=== PATIENT | male | born 1950 | race Caucasian/White ===

== ENCOUNTER 2020-06-15 19:46 | Emergency (ER) | payer MEDICARE, OTHER ==
[2020-06-15 19:57] LABS: Glucose,Whole Blood 169 mg/dL (75-99)
--- NOTE | 2020-06-15 21:05 | CT ---
EXAMINATION TYPE: CT brain wo con DATE OF EXAM: 06/15/2020 HISTORY: Chronic left sided facial droop. CT DLP: 1100.4 mGycm. Automated Exposure Control for Dose Reduction was Utilized. TECHNIQUE: CT scan of the head is performed without contrast. COMPARISON: None. FINDINGS: There is no acute intracranial hemorrhage or midline shift identified. There is diffuse v entricular and sulcal prominence consistent with diffuse age-related cerebral atrophy. There is low- attenuation in the periventricular white matter consistent with chronic small vessel ischemic change. Near-complete opacification right sphenoid sinus. Posterior opacification left sphenoid sinus. Hyp erdense left globe suspect prosthesis. IMPRESSION: No acute intracranial hemorrhage or midline shift. There is moderate diffuse age-relate d cerebral atrophy and chronic small vessel ischemic change noted. Right greater than left sphenoid sinus disease.
--- NOTE | 2020-06-15 22:10 | ED ---
General Adult HPI - General Chief complaint: Neuro Symptoms/Deficit Stated complaint: Left side weakness Time Seen by Provider: 06/15/20 20:27 Source: EMS Mode of arrival: EMS Limitations: altered mental status - History of Present Illness Initial comments: Patient is a 69-year-old male presenting to the emergency department from [facility], being sent in for a computed tomography scan. Patient has been recovering from Covid, came to [facility] on 06/12/20. Patient has chronic left- sided weakness, dysphasia and left-sided droop, Dr. Brennan seen him yesterday and told staff that he need to come into the hospital today for a computed tomography scan. Patient's family was contacted and states that these neuro symptoms are chronic for him and they were upset that he needed to come into the ER. Nursing staff did review previous notes and it was mentioned in all the assessments since arrival at [facility]. Patient is alert and oriented. He has no specific complaints at this time. Patient even mention that he is not sure why he is here as his weakness is normal. Denies any fevers or chills. Denies any chest pain or shortness of breath. He has no further complaints. - Related Data Allergies Allergy/AdvReac Type Severity Reaction Status Date / Time No Known Allergies Allergy Verified 06/15/20 20:41 Review of Systems ROS Statement: Those systems with pertinent positive or pertinent negative responses have been documented in the HPI. ROS Other: All systems not noted in ROS Statement are negative. Past Medical History Past Medical History: Diabetes Mellitus, Hyperlipidemia, Hypertension, Prostate Disorder Additional Past Medical History / Comment(s): Covid 19 on 05/31/20. Kidney dx- anemia. left bundle branch block. muscle weakness (generalized). parathyroid gland. obesity. Hyperlipidemia. Hypertensive Retinopathy. Legal Blindness. 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 Ventricular Tachycardia. Idiopathic Gout. Spinal Stenosis. Obstructive and reflux uropathy. Retention of urine History of Any Multi-Drug Resistant Organisms: None Reported Past Surgical History: No Surgical Hx Reported Past Psychological History: Depression Smoking Status: Never smoker Past Alcohol Use History: None Reported Past Drug Use History: None Reported General Exam - General Exam Comments Initial Comments: GENERAL: Patient is well-developed and well-nourished. Patient is nontoxic and in no acute distress. HEAD: Atraumatic, normocephalic. EYES: Pupils equal round and reactive to light, extraocular movements intact, sclera anicteric, conjunctiva are normal. Eyelids were unremarkable. ENT: TMs normal, nares patent, oropharynx clear without exudates. Moist mucous membranes. NECK: Normal range of motion, supple without lymphadenopathy or JVD. LUNGS: Unlabored respirations. Breath sounds clear to auscultation bilaterally and equal. No wheezes rales or rhonchi. HEART: Regular rate and rhythm without murmurs, rubs or gallops. ABDOMEN: Soft, nontender, normoactive bowel sounds. No guarding, no rebound. No masses appreciated. : Deferred MUSCULOSKELETAL: Right upper and lower extremity within normal limits, patient does have weakness of the left upper and lower extremity when compared to the right. Assistant Attorney General strength is slightly decreased on the left as well. He states this is normal for him. No clubbing or cyanosis. NEUROLOGICAL: Patient is alert and oriented x 3. Motor and sensory are also intact. Cranial nerves II through XII grossly intact. Patient does have some mild aphasia and left-sided facial droop, this is his baseline. This is not new. PSYCH: Normal mood, normal affect. SKIN: Warm, Dry, normal turgor, no rashes or lesions noted. Limitations: altered mental status Course Vital Signs 06/15/20 06/15/20 19:53 22:59 Temperature 98.0 F 98.4 F Pulse Rate 55 L 58 L Respiratory 20 20 Rate Blood Pressure 102/76 110/78 O2 Sat by Pulse 100 96 Oximetry Medical Decision Making - Medical Decision Making Patient is a 69-year-old male sent in from [facility] for a computed tomography scan of his head. Patient has been at [facility] for 3 days now, after evaluation from the physician, they were concerned for some left-sided weakness however this is his normal. This is his baseline, this is not a new finding. Family was contacted and they were upset that patient was sent into the ER for this as this is chronic and not new. Patient has no complaints upon arrival. He does have some residual left-sided weakness, he again states this is not new. I did do a CT of the head which showed no acute changes. Patient is stable for discharge back to [facility]. He is in agreement with this plan of care. He will follow-up with his doctor. Case discussed with Dr. Mullen. - Lab Data Lab Results 06/15/20 Range/Units 19:54 POC Glucose (mg/dL) 169 H (75-99) mg/dL POC Glu Mixed [employer] Worker ID Adriane Rodríguez Disposition Clinical Impression: Left arm weakness Disposition: HOME SELF-CARE Condition: Stable Instructions (If sedation given, give patient instructions): Normal Exam (ED) Additional Instructions: Please return to the Emergency Department if symptoms worsen or any other concerns. Patient's weakness is chronic in nature. CT scan today showed no acute findings. F/U with PCP. Is patient prescribed a controlled substance at d/c from ED?: No Referrals: Catalina Brennan MD [Primary Care Provider] - 1-2 days
[2020-06-15 22:59] VITALS: RESP 20
[2020-06-15 23:00] VITALS: BP 110/78; PULSE 58; TEMP 98.4
== END 2020-06-15 23:04 | disposition home or self-care (01) ==
LOC: EC 19:46
DX: R53.1 Weakness (principal); E11.9 Type 2 diabetes mellitus without complications; E66.9 Obesity, unspecified; E78.5 Hyperlipidemia, unspecified; I50.9 Heart failure, unspecified; F32.9 Major depressive disorder, single episode, unspecified
CPT/HCPCS: 36415; 70450; 99284

== ENCOUNTER 2022-07-12 23:29 | Inpatient (IN) | payer MEDICARE, OTHER ==
--- NOTE | 2022-07-12 23:45 | ED ---
General Adult HPI - General Chief complaint: Shortness of Breath Stated complaint: SOB Time Seen by Provider: 07/12/22 23:31 Source: patient, EMS, old records reviewed Mode of arrival: EMS Limitations: altered mental status, physical limitation - History of Present Illness Initial comments: Dictation was produced using Beta[employer] dictation software. please excuse any grammatical, word or spelling errors. Chief Complaint: 72-year-old male presents emergency department for abnormal x- ray History of Present Illness: 72-year-old male with baseline mental debility. He had baseline is anal 1 according to EMS. Patient lives at [facility]. He had an abnormal x-ray today after he was found to be short of breath. Patient has no complaints at the bedside. He had an x-ray that suggested there was a pleural effusion cannot rule out pneumothorax. Patient denies any chest pain or shortness of breath The ROS documented in this emergency department record has been reviewed and confirmed by me. Those systems with pertinent positive or negative responses have been documented in the HPI. All other systems are other negative and/or noncontributory. PHYSICAL EXAM: General Impression: Alert and oriented x3, not in acute distress HEENT: Normocephalic atraumatic, extra-ocular movements intact, pupils equal and reactive to light bilaterally, mucous membranes moist. Cardiovascular: Heart regular rate and rhythm Chest: Able to complete full sentences, no retractions, no tachypnea, diffuse rhonchi Abdomen: abdomen soft, non-tender, non-distended, no organomegaly Musculoskeletal: Pulses present and equal in all extremities, no peripheral edema Motor: no focal deficits noted Neurological: CN II-XII grossly intact, no focal motor or sensory deficits noted Skin: Intact with no visualized rashes Psych: Normal affect and mood ED course: 72-year-old male presents emergency department for abnormal x-ray. Orville lea is a resident at [facility] in [facility]. Transfer documentation was reviewed. Nursing notes and chart review was performed EKG interpreted by me: Ventricular rate 60, sinus rhythm,. 170, QRS 80, QTC 421. No MT prolongation, no QTC prolongation, no ST or T-wave changes noted. No old EKG for comparison Overall, this EKG is unremarkable Was pt. sent in by a medical professional or institution (, PA, ENGINE MANAGER, urgent care, hospital, or [facility]...) When possible be specific @ -custodial Did you speak to anyone other than the patient for history (EMS, parent, family, police, friend...)? What history was obtained from this source @ -Brother/power of ip attorney at the bedside. Brother reports that patient recently recovered from a bout of pneumonia. States that he still coughing. Did you review nursing and triage notes (agree or disagree)? Why? @ -I reviewed and agree with nursing and triage notes Were old charts reviewed (outside hosp., previous admission, EMS record, old EKG, old radiological studies, urgent care reports/EKG's, [facility] records)? Report findings @ -No old charts were reviewed Differential Diagnosis (chest pain, altered mental status, abdominal pain women, abdominal pain men, vaginal bleeding, musculoskeletal, weakness, fever, dyspnea, syncope, headache, dizziness, GI bleed, back pain, seizure, CVA, palpatations, mental health)? @ -Differential Dyspnea: Coronary syndrome, arrhythmia, tamponade, asthma, COPD, pulmonary embolism, pneumonia, pneumothorax, pulmonary effusion, anaphylaxis, diabetic ketoacidosis, flailed chest, pulmonary contusion, diaphragmatic rupture, anemia, neuromuscular, this is not meant to be an all-inclusive list. EKG interpreted by me (3pts min.). @ -None done X-rays interpreted by me (1pt min.). @ -None done CT interpreted by me (1pt min.). @ -Pleural thickening and calcification at the right lung base U/S interpreted by me (1pt. min.). @ -None done What testing was considered but not performed or refused? (CT, X-rays, U/S, labs)? Why? @ -None What meds were considered but not given or refused? Why? @ -None Did you discuss the management of the patient with other professionals (professionals i.e. DrEden, PA, ENGINE MANAGER, lab, RT, psych nurse, social insurance adviser, intellectual property lawyer, teacher, employment officer, block and case maker)? Give summary @ -Discussed with hospitalist Was smoking cessation discussed for >3mins.? @ -No Was critical care preformed (if so, how long)? @ -No Were there social determinants of health that impacted care today? How? (Homel essness, low income, unemployed, alcoholism, drug addiction, transportation, low edu. Level, literacy, decrease access to med. care, residential, rehab)? @ -No Was there de-escalation of care discussed even if they declined (Discuss DNR or withdrawal of care, Hospice)? DNR status @ -No What co-morbidities impacted this encounter? (DM, HTN, Smoking, COPD, CAD, Cancer, CVA, ARF, Chemo, Hep., AIDS, mental health diagnosis, sleep apnea, morbid obesity)? @ -None Was patient admitted / discharged? Hospital course, mention meds given and route, prescriptions, significant lab abnormalities, going to OR and other pertinent info. @ -72-year-old male presents emergency department for abnormal x-ray. Patient states that he wears oxygen sometimes. Patient assessed for tolerance of oxygen normal. He he will possibly into the mid 80s. Patient seems to be reliant on supplemental oxygen. Chest CT shows fibrothorax. Clinical presentation consistent with hypoxic respiratory failure. Patient be admitted with consultation pulmonology. Labs are within acceptable limits. Patient's creatinine of 2.01. No old renal function labs for comparison. Undiagnosed new problem with uncertain prognosis? @ -No Drug Therapy requiring intensive monitoring for toxicity (Heparin, Nitro, Insulin, Cardizem)? @ -No Were any procedures done? @ -No Diagnosis/symptom? Acute, or Chronic, or Acute on Chronic? Uncomplicated (without systemic symptoms) or Complicated (systemic symptoms)? @ -1, complicated hypoxic respiratory failure Side effects of treatment? @ -No Exacerbation, Progression, or Severe Exacerbation? @ -No Poses a threat to life or bodily function? How? (Chest pain, [place], [place], pneumonia, PE, COPD, DKA, ARF, appy, cholecystitis, CVA, Diverticulitis, Homicidal, Suicidal, threat to staff... and all critical care pts) @ -Yes - Related Data Allergies Allergy/AdvReac Type Severity Reaction Status Date / Time No Known Allergies Allergy Verified 06/15/20 20:41 Review of Systems ROS Statement: Those systems with pertinent positive or pertinent negative responses have been documented in the HPI. ROS Other: All systems not noted in ROS Statement are negative. Past Medical History Past Medical History: Dementia, Diabetes Mellitus, Hyperlipidemia, Hypertension, Prostate Disorder Additional Past Medical History / Comment(s): Covid 19 on 05/31/20. Kidney dx- anemia. left bundle branch block. muscle weakness (generalized). parathyroid gland. obesity. Hyperlipidemia. Hypertensive Retinopathy. Legal Blindness. 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 Ventricular Tachycardia. Idiopathic Gout. Spinal Stenosis. Obstructive and reflux uropathy. Retention of urine History of Any Multi-Drug Resistant Organisms: None Reported Past Surgical History: No Surgical Hx Reported Past Psychological History: Depression Smoking Status: Never smoker Past Alcohol Use History: None Reported Past Drug Use History: None Reported General Exam Limitations: altered mental status, physical limitation Course Vital Signs 07/12/22 07/13/22 07/13/22 23:31 00:43 00:44 Temperature 98.2 F Pulse Rate 60 Respiratory 20 Rate Blood Pressure 120/86 O2 Sat by Pulse 99 88 L 96 Oximetry Medical Decision Making - Lab Data Result diagrams: 07/12/22 23:58 07/12/22 23:58 Lab Results 07/12/22 07/12/22 Range/Units 23:58 23:58 WBC 3.9 (3.8-10.6) k/uL RBC 4.07 L (4.30-5.90) m/uL Hgb 12.2 L (13.0-17.5) gm/dL Hct 37.2 L (39.0-53.0) % MCV 91.2 (80.0-100.0) fL MCH 30.1 (25.0-35.0) pg MCHC 33.0 (31.0-37.0) g/dL RDW 13.5 (11.5-15.5) % Plt Count 185 (150-450) k/uL MPV 8.5 Neutrophils % 67 % Lymphocytes % 24 % Monocytes % 7 % Eosinophils % 1 % Basophils % 1 % Neutrophils # 2.6 (1.3-7.7) k/uL Lymphocytes # 0.9 L (1.0-4.8) k/uL Monocytes # 0.3 (0-1.0) k/uL Eosinophils # 0.0 (0-0.7) k/uL Basophils # 0.0 (0-0.2) k/uL Sodium 139 (137-145) mmol/L Potassium 4.6 (3.5-5.1) mmol/L Chloride 104 (98-107) mmol/L Carbon Dioxide 27 (22-30) mmol/L Anion Gap 8 mmol/L BUN 31 H (9-20) mg/dL Creatinine 2.01 H (0.66-1.25) mg/dL Est GFR (CKD-EPI)AfAm 37 (>60 ml/min/1.73 sqM) Est GFR (CKD-EPI)NonAf 32 (>60 ml/min/1.73 sqM) Glucose 105 H (74-99) mg/dL Calcium 8.5 (8.4-10.2) mg/dL Disposition Clinical Impression: Hypoxia Disposition: ADMITTED IP TO THIS HOSP Condition: Fair Referrals: Catalina Brennan MD [Primary Care Provider] - 1-2 days Decision Time: 00:43
[2022-07-13 00:27] LABS: Basophils % (A) 1 %; Calcium 8.5 mg/dL (8.4-10.2); Eosinophils % (A) 1 %; HCT 37.2 % (39.0-53.0); HGB 12.2 gm/dL (13.0-17.5); Lymphocytes # (A) 0.9 k/uL (1.0-4.8); Lymphocytes % (A) 24 %; MCH 30.1 pg (25.0-35.0); MCV 91.2 fL (80.0-100.0); Mean Platelet Volume 8.5; Monocytes # (A) 0.3 k/uL (0-1.0); Monocytes % (A) 7 %; Neutrophils # (A) 2.6 k/uL (1.3-7.7); Neutrophils % (A) 67 %; Platelet Count 185 k/uL (150-450); Potassium 4.6 mmol/L (3.5-5.1); RBC 4.07 m/uL (4.30-5.90); RDW 13.5 % (11.5-15.5); WBC 3.9 k/uL (3.8-10.6)
--- NOTE | 2022-07-13 00:35 | CT ---
EXAMINATION TYPE: CT chest wo con DATE OF EXAM: 07/13/2022 COMPARISON: None HISTORY: Abnormal outpatient CXR CT DLP: 553.3 mGycm. Automated Exposure Control for Dose Reduction was Utilized. TECHNIQUE: CT scan of the thorax is performed without IV contrast. FINDINGS: LUNGS: There is volume loss involving the right hemithorax extensive pleural thickening and calcifica tion. Subsegmental changes seen within the right lower lobe. Correlate for is best is related disease . No pneumothorax. No sizable pleural effusion. MEDIASTINUM: Lack of IV contrast is noted to limit evaluation for mediastinal and especially hilar ad enopathy. There are no definitive greater than 1 cm hilar or mediastinal lymph nodes. No cardiomega ly or pericardial effusion is seen. Dense coronary artery calcification. Atherosclerotic change aorta with no evidence of aneurysm. Heart mildly enlarged. Trace of pericardial fluid. OTHER: Scoliosis of the spine with multilevel degenerative disc disease. Cholelithiasis noted. Nonspe cific perinephric stranding. Prominence of the soft tissues along the left flank are only partially i ncluded in the [id number] are felt to be most likely related to partial volume averaging correlate clinically to exclude soft tissue edema. Bilateral adrenal nodules are seen measuring approximately 6 Hounsfield units on the right. Measures 2.5 cm on the right and 1.2 cm and the left. IMPRESSION: 1. Volume loss involving the right hemithorax with the dense pleural thickening and calcification can be associated with a fibrothorax. Differential diagnosis includes asbestos related disease, prior tr auma or hemothorax, prior thoracic empyema or tuberculous pleural effusion. Small area of subsegmenta l consolidation adjacent to the pleural calcification. Atelectasis favored over early pneumonitis or an draped. 2. Cardiomegaly with coronary artery calcification. 3. Cholelithiasis. 4. Soft tissue prominence within the subcutaneous tissues along the left upper abdomen only partially included in the [id number] may be related to partial volume averaging correlate clinically to exc lude soft tissue edema. 5. Indeterminate bilateral adrenal nodules for which adrenal adenoma favored.
[2022-07-13] MEDS ORDERED: NALOXONE 0.4 MG/ML 1 ML VIAL IV PRN (00:48)
[2022-07-13 06:20] LABS: Glucose,Whole Blood 48 mg/dL (70-110)
[2022-07-13 06:45] LABS: Glucose,Whole Blood 59 mg/dL (70-110)
[2022-07-13 07:10] LABS: Glucose,Whole Blood 87 mg/dL (70-110)
[2022-07-13] MEDS: SODIUM CHLORIDE 0.9% 1,000 ML IV SCH ×2 (08:06→10:27)
[2022-07-13] MEDS ORDERED: ALBUTEROL NEBULIZED 2.5 MG/3 ML INHALATION PRN (08:35)
[2022-07-13] MEDS ORDERED: ACETAMINOPHEN TAB 325 MG TAB PO PRN (08:35)
[2022-07-13] MEDS ORDERED: PNEUMONIA PROTOCOL UTILIZED 1 EACH MISC PO PRN (08:35)
[2022-07-13] MEDS ORDERED: guaiFENesin-Coden 100-10MG/5ML 10 ML CUP PO PRN (08:41)
[2022-07-13] MEDS ORDERED: AZITHROMYCIN 500 MG in SODIUM CHLORIDE 0.9% 250 ML IVPB ONE (10:00)
[2022-07-13 11:14] LABS: VBG PH 7.25 (7.31-7.41)
[2022-07-13 11:36] LABS: Glucose,Whole Blood 177 mg/dL (70-110)
[2022-07-13] MEDS: IPRATROPIUM-ALBUTEROL 3 ML NEB INHALATION SCH ×3 (11:47→21:09)
[2022-07-13] MEDS: methylPREDNISolone SOD SUCCI 125 MG/2 ML VIAL IV SCH ×3 (12:25→23:23)
[2022-07-13] MEDS: DEXTROSE 5%-0.9% NACL 1,000 ML IV SCH ×2 (12:28→23:18)
--- NOTE | 2022-07-13 12:59 | CT ---
EXAMINATION TYPE: CT brain wo con DATE OF EXAM: 07/13/2022 COMPARISON: 06/15/2020 HISTORY: ams CT DLP: 1260 mGycm Automated exposure control for dose reduction was used. FINDINGS: The ventricles, basal cisterns and sulci over the convexities are markedly enlarged consistent with m arked generalized atrophy. There is moderate diffuse decreased density in the deep periventricular white matter consistent with chronic ischemic white matter demyelination. There is no mass effect or shift of midline structures. There is no acute intra or extra-axial hemorrhage. The posterior fossa including the brainstem, fourth ventricle and cerebellar pontine angles are gross ly normal. Intraorbital contents appear normal and symmetric. There are mild chronic inflammatory changes in the maxillary sinuses. The mastoid air cells are well aerated. There is been no interval change compared to previous. IMPRESSION: 1. MARKED ATROPHY UNCHANGED COMPARED TO PREVIOUS. 2. MODERATE CHRONIC ISCHEMIC WHITE MATTER CHANGE UNCHANGED COMPARED TO PREVIOUS. 3. NO ACUTE BLEED OR MASS EFFECT. 4. CHRONIC INFLAMMATORY CHANGES IN THE PARANASAL SINUSES.
--- NOTE | 2022-07-13 13:18 | P.HPIM ---
History of Present Illness H&P Date: 07/13/22 72-year-old gentleman with past medical history significant for prostate disorder presented with altered mental status. Patient does have baseline cognitive impairment however at baseline is alert and oriented to person and situation and is able to have a conversation. Patient is obtunded and history is obtained from brother at bedside patient was last seen by brother yesterday and he had a pleasant conversation and they had to breakfast together. At the time of evaluation patient was disoriented however was easily redirectable. Blood work obtained in ER showed low white cell count a CT chest was obtained which was questionable for infiltrate and patient was started on IV antibiotic. Patient was also started on oxygen supplementation Review of Systems ROS unobtainable: due to mental status Past Medical History Past Medical History: Dementia, Diabetes Mellitus, Hyperlipidemia, Hypertension, Prostate Disorder Additional Past Medical History / Comment(s): Covid 19 on 05/31/20. Kidney dx- anemia. left bundle branch block. muscle weakness (generalized). parathyroid gland. obesity. Hyperlipidemia. Hypertensive Retinopathy. Legal Blindness. 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 Ventricular Tachycardia. Idiopathic Gout. Spinal Stenosis. Obstructive and reflux uropathy. Retention of urine History of Any Multi-Drug Resistant Organisms: None Reported Past Surgical History: Prostate Surgery Additional Past Surgical History / Comment(s): prostate removed. Past Psychological History: Depression Smoking Status: Never smoker Past Alcohol Use History: None Reported Past Drug Use History: None Reported - Past Family History Father Family Medical History: Cancer, Diabetes Mellitus Additional Family Medical History / Comment(s): prostate CA. Mother Family Medical History: CVA/TIA, Diabetes Mellitus Medications and Allergies Home Medications Medication Instructions Recorded Confirmed Type Acetaminophen Tab [Tylenol] 650 mg PO Q6H PRN 07/13/22 07/13/22 History Atorvastatin Calcium [Lipitor] 40 mg PO HS 07/13/22 07/13/22 History Bumetanide [Bumex] 1 mg PO DAILY 07/13/22 07/13/22 History Cholecalciferol [Vitamin D3 (25 50 mcg PO DAILY 07/13/22 07/13/22 History Mcg = 1000 Iu)] Insulin Glargine,Hum.rec.anlog 20 units SQ DAILY 07/13/22 07/13/22 History [Lantus Solostar Pen] Insulin Glargine,Hum.rec.anlog 26 units SQ HS 07/13/22 07/13/22 History [Lantus Solostar Pen] Isosorbide Mononitrate ER [Imdur] 60 mg PO DAILY 07/13/22 07/13/22 History Loperamide HCl [Loperamide] 2 mg PO Q6H PRN 07/13/22 07/13/22 History Mag Hydrox/Aluminum Hyd/Simeth 10 ml PO Q6H PRN 07/13/22 07/13/22 History [Mylanta Maximum Strength Liq] Magnesium Hydroxide [Milk of 7,200 mg PO Q48H PRN 07/13/22 07/13/22 History Magnesia Concentrate] Metoprolol Tartrate [Lopressor] 25 mg PO BID 07/13/22 07/13/22 History Sennosides-Docusate Sodium 1 tab PO DAILY 07/13/22 07/13/22 History [Senokot-S] Sertraline [Zoloft] 50 mg PO DAILY 07/13/22 07/13/22 History allopurinoL 100 mg PO DAILY 07/13/22 07/13/22 History amLODIPine [Norvasc] 10 mg PO DAILY 07/13/22 07/13/22 History guaiFENesin SYRUP 100MG/5ML 100 mg PO Q4H PRN 07/13/22 07/13/22 History [Robitussin] lisinopriL [Zestril] 10 mg PO DAILY 07/13/22 07/13/22 History Allergies Allergy/AdvReac Type Severity Reaction Status Date / Time No Known Allergies Allergy Verified 06/15/20 20:41 Physical Exam Vitals: Vital Signs Temp Pulse Pulse Resp BP BP Pulse Ox 07/13/22 12:31 98.6 F 57 L 18 175/78 98 07/13/22 11:56 97 07/13/22 11:47 78 07/13/22 08:09 49 L 07/13/22 07:56 51 L 18 136/64 99 07/13/22 04:15 54 L 17 150/73 94 L 07/13/22 02:04 98.1 F 46 L 18 145/64 99 07/13/22 01:01 52 L 20 120/61 97 07/13/22 00:44 96 07/13/22 00:43 88 L 07/12/22 23:31 98.2 F 60 20 120/86 99 Intake and Output 07/12/22 07/13/22 07/13/22 22:59 06:59 14:59 Output Total 100 Balance -100 Output: Urine 100 Other: Voiding Method External Catheter Weight 98.339 kg - Constitutional General appearance: mild distress - Respiratory Respiratory: left: rhonchi - Cardiovascular Rhythm: regular Heart sounds: normal: S1, S2 - Gastrointestinal General gastrointestinal: no organomegaly, soft, no tenderness - Neurologic Patient is disoriented exam limited Results CBC & Chem 7: 07/12/22 23:58 07/12/22 23:58 Labs: Abnormal Lab Results - Last 24 Hours (Table) 07/12/22 07/12/22 07/13/22 Range/Units 23:58 23:58 06:19 RBC 4.07 L (4.30-5.90) m/uL Hgb 12.2 L (13.0-17.5) gm/dL Hct 37.2 L (39.0-53.0) % Lymphocytes # 0.9 L (1.0-4.8) k/uL VBG pH (7.31-7.41) VBG pCO2 (37-51) mmHg VBG HCO3 (24-28) mmol/L BUN 31 H (9-20) mg/dL Creatinine 2.01 H (0.66-1.25) mg/dL Glucose 105 H (74-99) mg/dL POC Glucose (mg/dL) 48 L (70-110) mg/dL 07/13/22 07/13/22 07/13/22 Range/Units 06:43 10:52 11:34 RBC (4.30-5.90) m/uL Hgb (13.0-17.5) gm/dL Hct (39.0-53.0) % Lymphocytes # (1.0-4.8) k/uL VBG pH 7.25 L (7.31-7.41) VBG pCO2 54 H (37-51) mmHg VBG HCO3 23 L (24-28) mmol/L BUN (9-20) mg/dL Creatinine (0.66-1.25) mg/dL Glucose (74-99) mg/dL POC Glucose (mg/dL) 59 L 177 H (70-110) mg/dL Thrombosis Risk Factor Assmnt - DVT/VTE Prophylaxis DVT/VTE Prophylaxis: Pharmacologic Prophylaxis ordered - Choose All That Apply Any of the Below Risk Factors Present?: Yes Each Factor Represents 1 point: Obesity (BMI >25) Other Risk Factors: Yes Each Risk Factor Represents 2 Points: Age 61-74 years Other congenital or acquired thrombophilia - If yes, enter type in comment: No Thrombosis Risk Factor Assessment Total Risk Factor Score: 3 Thrombosis Risk Factor Assessment Level: Moderate Risk Assessment and Plan (1) Encephalopathy acute Narrative/Plan: CT head obtained negative for acute intracranial process chronic ischemic changes noted, venous blood gas does show hypercapnia suspicion for metabolic encephalopathy. Pulmonary medicine consulted as well will continue with IV hydration had intermittent episodes of hypoglycemia Current Visit: Yes Status: Acute Code(s): G93.40 - ENCEPHALOPATHY, UNSPECIFIED SNOMED Code(s): 83981024 (2) Pneumonia Narrative/Plan: Urine Legionella ordered, continue patient on IV antibiotics of Rocephin and azithromycin Current Visit: Yes Status: Acute Code(s): J18.9 - PNEUMONIA, UNSPECIFIED ORGANISM SNOMED Code(s): 628213799 (3) Hypoxia Narrative/Plan: Patient noted to have hypoxia suspicion for aspiration CT chest without contrast showed volume loss and right hemithorax pleural thickening Current Visit: Yes Status: Acute Code(s): R09.02 - HYPOXEMIA SNOMED Code(s): 029957107
--- NOTE | 2022-07-13 13:24 | P.HPIM ---
History of Present Illness H&P Date: 07/13/22 Chief Complaint: Altered mentation 72-year-old gentleman with past medical history of prostate issues, cognitive impairment, presented to the emergency department with altered mentation. Patient was initially sent in as he was noted to have a normal chest x-ray as outpatient. However at the time of presentation in the ED patient was noted to be disoriented. CT chest was completed in the ED without contrast. Patient was noted to remain disoriented at the time of evaluation on the medical floor and a CT head was obtained. Venous blood gas was obtained as well which showed hypercapnia. Patient was accompanied by his parents at bedside who assisted with history taking. Apparently patient is alert and oriented times person and situation at baseline and was last known well on he had breakfast with his father. Patient is bedbound otherwise. Review of blood work in the ER showed low white cell count. Hemoglobin was stable. Patient will be admitted to [place] [facility] and treated for pneumonia Review of Systems ROS unobtainable: due to mental status Past Medical History Past Medical History: Dementia, Diabetes Mellitus, Hyperlipidemia, Hypertension, Prostate Disorder Additional Past Medical History / Comment(s): Covid 19 on 05/31/20. Kidney dx- a nemia. left bundle branch block. muscle weakness (generalized). parathyroid gland. obesity. Hyperlipidemia. Hypertensive Retinopathy. Legal Blindness. 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 Ventricular Tachycardia. Idiopathic Gout. Spinal Stenosis. Obstructive and reflux uropathy. Retention of urine History of Any Multi-Drug Resistant Organisms: None Reported Past Surgical History: Prostate Surgery Additional Past Surgical History / Comment(s): prostate removed. Past Psychological History: Depression Smoking Status: Never smoker Past Alcohol Use History: None Reported Past Drug Use History: None Reported - Past Family History Father Family Medical History: Cancer, Diabetes Mellitus Additional Family Medical History / Comment(s): prostate CA. Mother Family Medical History: CVA/TIA, Diabetes Mellitus Medications and Allergies Home Medications Medication Instructions Recorded Confirmed Type Acetaminophen Tab [Tylenol] 650 mg PO Q6H PRN 07/13/22 07/13/22 History Atorvastatin Calcium [Lipitor] 40 mg PO HS 07/13/22 07/13/22 History Bumetanide [Bumex] 1 mg PO DAILY 07/13/22 07/13/22 History Cholecalciferol [Vitamin D3 (25 50 mcg PO DAILY 07/13/22 07/13/22 History Mcg = 1000 Iu)] Insulin Glargine,Hum.rec.anlog 20 units SQ DAILY 07/13/22 07/13/22 History [Lantus Solostar Pen] Insulin Glargine,Hum.rec.anlog 26 units SQ HS 07/13/22 07/13/22 History [Lantus Solostar Pen] Isosorbide Mononitrate ER [Imdur] 60 mg PO DAILY 07/13/22 07/13/22 History Loperamide HCl [Loperamide] 2 mg PO Q6H PRN 07/13/22 07/13/22 History Mag Hydrox/Aluminum Hyd/Simeth 10 ml PO Q6H PRN 07/13/22 07/13/22 History [Mylanta Maximum Strength Liq] Magnesium Hydroxide [Milk of 7,200 mg PO Q48H PRN 07/13/22 07/13/22 History Magnesia Concentrate] Metoprolol Tartrate [Lopressor] 25 mg PO BID 07/13/22 07/13/22 History Sennosides-Docusate Sodium 1 tab PO DAILY 07/13/22 07/13/22 History [Senokot-S] Sertraline [Zoloft] 50 mg PO DAILY 07/13/22 07/13/22 History allopurinoL 100 mg PO DAILY 07/13/22 07/13/22 History amLODIPine [Norvasc] 10 mg PO DAILY 07/13/22 07/13/22 History guaiFENesin SYRUP 100MG/5ML 100 mg PO Q4H PRN 07/13/22 07/13/22 History [Robitussin] lisinopriL [Zestril] 10 mg PO DAILY 07/13/22 07/13/22 History Allergies Allergy/AdvReac Type Severity Reaction Status Date / Time No Known Allergies Allergy Verified 06/15/20 20:41 Physical Exam Vitals: Vital Signs Temp Pulse Pulse Resp BP BP Pulse Ox 07/13/22 12:31 98.6 F 57 L 18 175/78 98 07/13/22 11:56 97 07/13/22 11:47 78 07/13/22 08:09 49 L 07/13/22 07:56 51 L 18 136/64 99 07/13/22 04:15 54 L 17 150/73 94 L 07/13/22 02:04 98.1 F 46 L 18 145/64 99 07/13/22 01:01 52 L 20 120/61 97 07/13/22 00:44 96 07/13/22 00:43 88 L 07/12/22 23:31 98.2 F 60 20 120/86 99 Intake and Output 07/12/22 07/13/22 07/13/22 22:59 06:59 14:59 Output Total 100 Balance -100 Output: Urine 100 Other: Voiding Method External Catheter Weight 98.339 kg - Constitutional General appearance: mild distress - Respiratory Respiratory: left: diminished - Cardiovascular Rhythm: regular Heart sounds: normal: S1, S2 - Gastrointestinal General gastrointestinal: no organomegaly, soft, no tenderness - Neurologic Patient is disoriented however easily redirectable no focal deficit noted moving both upper extremities Results CBC & Chem 7: 07/12/22 23:58 07/12/22 23:58 Labs: Abnormal Lab Results - Last 24 Hours (Table) 07/12/22 07/12/22 07/13/22 Range/Units 23:58 23:58 06:19 RBC 4.07 L (4.30-5.90) m/uL Hgb 12.2 L (13.0-17.5) gm/dL Hct 37.2 L (39.0-53.0) % Lymphocytes # 0.9 L (1.0-4.8) k/uL VBG pH (7.31-7.41) VBG pCO2 (37-51) mmHg VBG HCO3 (24-28) mmol/L BUN 31 H (9-20) mg/dL Creatinine 2.01 H (0.66-1.25) mg/dL Glucose 105 H (74-99) mg/dL POC Glucose (mg/dL) 48 L (70-110) mg/dL 07/13/22 07/13/22 07/13/22 Range/Units 06:43 10:52 11:34 RBC (4.30-5.90) m/uL Hgb (13.0-17.5) gm/dL Hct (39.0-53.0) % Lymphocytes # (1.0-4.8) k/uL VBG pH 7.25 L (7.31-7.41) VBG pCO2 54 H (37-51) mmHg VBG HCO3 23 L (24-28) mmol/L BUN (9-20) mg/dL Creatinine (0.66-1.25) mg/dL Glucose (74-99) mg/dL POC Glucose (mg/dL) 59 L 177 H (70-110) mg/dL Thrombosis Risk Factor Assmnt - Choose All That Apply Any of the Below Risk Factors Present?: Yes Each Factor Represents 1 point: Obesity (BMI >25) Other Risk Factors: Yes Each Risk Factor Represents 2 Points: Age 61-74 years Other congenital or acquired thrombophilia - If yes, enter type in comment: No Thrombosis Risk Factor Assessment Total Risk Factor Score: 3 Thrombosis Risk Factor Assessment Level: Moderate Risk Assessment and Plan (1) Encephalopathy acute Narrative/Plan: CT head obtained negative for acute intracranial process chronic ischemic changes noted, venous blood gas does show hypercapnia suspicion for metabolic encephalopathy. Pulmonary medicine consulted as well will continue with IV hydration had intermittent episodes of hypoglycemia Current Visit: Yes Status: Acute Code(s): G93.40 - ENCEPHALOPATHY, UNSPECIFIED SNOMED Code(s): 90089309 (2) Pneumonia Narrative/Plan: Urine Legionella ordered, continue patient on IV antibiotics of Rocephin and azithromycin Current Visit: Yes Status: Acute Code(s): J18.9 - PNEUMONIA, UNSPECIFIED ORGANISM SNOMED Code(s): 863603126 (3) Hypoxia Narrative/Plan: Patient noted to have hypoxia suspicion for aspiration CT chest without contrast showed volume loss and right hemithorax pleural thickening Current Visit: Yes Status: Acute Code(s): R09.02 - HYPOXEMIA SNOMED Code(s): 617103872
--- NOTE | 2022-07-13 13:44 | P.CNPUL ---
History of Present Illness Consult date: 07/13/22 Requesting physician: Bear Reyna Reason for consult: dyspnea, hypoxemia, abnormal CXR/CT Chief complaint: Shortness of breath History of present illness: This is 72-year-old male patient who resides at [facility] with a history of dementia and medical debility up to approximately one year following an extended hospitalization after prostate surgery. He also has a history of severe pneumonia at the age of 14 requiring a 6 weeks stay at [facility] with multiple drainage procedures for abscess in the right lung according to his brothers who are at the bedside. They state he did not have tuberculosis. He was noted to be more short of breath at the [facility] and was transferred here for further evaluation. A computed tomography scan of the chest revealed volume loss involving the right hemithorax with dense pleural thickening and calcification associated with a fibrothorax. Computed tomography scan of the brain revealed marketed atrophy unchanged compared to previous in 2020. White count 3.9. Hemoglobin 12.2. Platelets 185. Sodium 139. Potassium 4.6. Bicarb 27. BUN 31. Creatinine 2.01. Glucose 105. Influenza screen negative. RSV screen negative. COVID-19 screen negative. He is seen today in consultation on the regular medical floor. Currently resting in bed. He is maintaining O2 saturations in the 90s on 3 L nasal cannula. Afebrile. Able to recognize his brothers. He's been initiated on DuoNeb inhalations, Pulmicort and performs inhalations, IV Solu-Medrol. Antibiotics in the form of ceftriaxone. Heparin for DVT prophylaxis. D5W half-normal saline at 100 ML's per hour. Review of Systems ROS unobtainable: due to mental status Past Medical History Past Medical History: Dementia, Diabetes Mellitus, Hyperlipidemia, Hypertension, Prostate Disorder Additional Past Medical History / Comment(s): Covid 19 on 05/31/20. Kidney dx- anemia. left bundle branch block. muscle weakness (generalized). parathyroid gland. obesity. Hyperlipidemia. Hypertensive Retinopathy. Legal Blindness. 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 Ventricular Tachycardia. Idiopathic Gout. Spinal Stenosis. Obstructive and reflux uropathy. Retention of urine History of Any Multi-Drug Resistant Organisms: None Reported Past Surgical History: Prostate Surgery Additional Past Surgical History / Comment(s): prostate removed. Past Psychological History: Depression Smoking Status: Never smoker Past Alcohol Use History: None Reported Past Drug Use History: None Reported - Past Family History Father Family Medical History: Cancer, Diabetes Mellitus Additional Family Medical History / Comment(s): prostate CA. Mother Family Medical History: CVA/TIA, Diabetes Mellitus Medications and Allergies Home Medications Medication Instructions Recorded Confirmed Type Acetaminophen Tab [Tylenol] 650 mg PO Q6H PRN 07/13/22 07/13/22 History Atorvastatin Calcium [Lipitor] 40 mg PO HS 07/13/22 07/13/22 History Bumetanide [Bumex] 1 mg PO DAILY 07/13/22 07/13/22 History Cholecalciferol [Vitamin D3 (25 50 mcg PO DAILY 07/13/22 07/13/22 History Mcg = 1000 Iu)] Insulin Glargine,Hum.rec.anlog 20 units SQ DAILY 07/13/22 07/13/22 History [Lantus Solostar Pen] Insulin Glargine,Hum.rec.anlog 26 units SQ HS 07/13/22 07/13/22 History [Lantus Solostar Pen] Isosorbide Mononitrate ER [Imdur] 60 mg PO DAILY 07/13/22 07/13/22 History Loperamide HCl [Loperamide] 2 mg PO Q6H PRN 07/13/22 07/13/22 History Mag Hydrox/Aluminum Hyd/Simeth 10 ml PO Q6H PRN 07/13/22 07/13/22 History [Mylanta Maximum Strength Liq] Magnesium Hydroxide [Milk of 7,200 mg PO Q48H PRN 07/13/22 07/13/22 History Magnesia Concentrate] Metoprolol Tartrate [Lopressor] 25 mg PO BID 07/13/22 07/13/22 History Sennosides-Docusate Sodium 1 tab PO DAILY 07/13/22 07/13/22 History [Senokot-S] Sertraline [Zoloft] 50 mg PO DAILY 07/13/22 07/13/22 History allopurinoL 100 mg PO DAILY 07/13/22 07/13/22 History amLODIPine [Norvasc] 10 mg PO DAILY 07/13/22 07/13/22 History guaiFENesin SYRUP 100MG/5ML 100 mg PO Q4H PRN 07/13/22 07/13/22 History [Robitussin] lisinopriL [Zestril] 10 mg PO DAILY 07/13/22 07/13/22 History Allergies Allergy/AdvReac Type Severity Reaction Status Date / Time No Known Allergies Allergy Verified 06/15/20 20:41 Physical Exam Vitals: Vital Signs Temp Pulse Pulse Resp BP BP Pulse Ox 07/13/22 13:17 52 L 07/13/22 12:31 98.6 F 57 L 18 175/78 98 07/13/22 11:56 97 07/13/22 11:47 78 07/13/22 08:09 49 L 07/13/22 07:56 51 L 18 136/64 99 07/13/22 04:15 54 L 17 150/73 94 L 07/13/22 02:04 98.1 F 46 L 18 145/64 99 07/13/22 01:01 52 L 20 120/61 97 07/13/22 00:44 96 07/13/22 00:43 88 L 07/12/22 23:31 98.2 F 60 20 120/86 99 Intake and Output 07/12/22 07/13/22 07/13/22 22:59 06:59 14:59 Output Total 100 150 Balance -100 -150 Output: Urine 100 150 Other: Voiding Method External Catheter Weight 98.339 kg GENERAL EXAM: Alert, slow to respond, recognizes brothers, 72-year-old male, on 3 L nasal cannula, comfortable in no apparent distress. HEAD: Normocephalic. EYES: Normal reaction of pupils, equal size. NOSE: Clear with pink turbinates. THROAT: No erythema or exudates. NECK: No masses, no JVD. CHEST: No chest wall deformity. LUNGS: Equal air entry with few crackles in the right lower lobe. CVS: S1 and S2 normal with no audible murmur, regular rhythm. ABDOMEN: No hepatosplenomegaly, normal bowel sounds, no guarding or rigidity. SPINE: No scoliosis or deformity SKIN: No rashes CENTRAL NERVOUS SYSTEM: No focal deficits, tone is normal in all 4 extremities. EXTREMITIES: There is no peripheral edema. No clubbing, no cyanosis. Pe ripheral pulses are intact. Results - Laboratory Findings CBC and BMP: 07/12/22 23:58 07/12/22 23:58 Abnormal lab findings: Abnormal Labs 07/12/22 07/12/22 07/13/22 23:58 23:58 06:19 RBC 4.07 L Hgb 12.2 L Hct 37.2 L Lymphocytes # 0.9 L VBG pH VBG pCO2 VBG HCO3 BUN 31 H Creatinine 2.01 H Glucose 105 H POC Glucose (mg/dL) 48 L 07/13/22 07/13/22 07/13/22 06:43 10:52 11:34 RBC Hgb Hct Lymphocytes # VBG pH 7.25 L VBG pCO2 54 H VBG HCO3 23 L BUN Creatinine Glucose POC Glucose (mg/dL) 59 L 177 H - Diagnostic Findings CT scan - chest: image reviewed Assessment and Plan Assessment: Acute hypoxic respiratory failure secondary to acute exacerbation of chronic obstructive pulmonary disease and possible early right lower lobe pneumonia. There is volume loss involving the right hemithorax with a dense pleural thickening and calcification could be associated with fibrothorax. The patient does have a history of significant pneumonia with suspected abscess and multiple drainage at [facility] back at the age of 14. He was hospitalized for 6 weeks at that time. Diarrhea, C. difficile screen pending History of medical debility and near bedridden for the past year following a extended hospitalization after prostate surgery. Currently residing in [facility] History of dementia History of chronic tobacco dependence however quit approximately 3 years ago Diabetes mellitus Hypertension Hyperlipidemia COVID-19 infection in May 2020 Chronic kidney disease Chronic anemia Legal blindness History of gout History of urinary retention History of depression Poor overall functional performance based on the above-mentioned multiple comorbidities Plan: The patient was seen and evaluated CAT scans, medications and labs reviewed Continue antibiotics in the form of ceftriaxone Continue bronchodilators, Solu-Medrol Titrate the FiO2 as tolerated Check a pro-calcitonin Legionella screen pending Urine culture pending C. difficile screen pending We will continue to follow and make further recommendations based on his clinical status I have personally seen and examined the patient, performed the documentation and the assessment and plan as written. Number of minutes spent on the visit: 20.
[2022-07-13 16:38] LABS: Glucose,Whole Blood 206 mg/dL (70-110)
[2022-07-13] MEDS ORDERED: DEXTROSE 50% SYRINGE 50 ML IVP PRN ×2 (17:16)
[2022-07-13] MEDS: INSULIN ASPART (NovoLOG) 100 UNIT/ML VIAL SQ SCH ×2 (17:34→20:32)
[2022-07-13 20:07] LABS: Glucose,Whole Blood 242 mg/dL (70-110)
[2022-07-13] MEDS: HEPARIN SODIUM,PORCINE/PF 5,000 UNIT/0.5 ML SYRINGE SQ SCH (20:32)
[2022-07-13] MEDS: BUDESONIDE 1 MG/2 ML NEBU INHALATION SCH (21:09)
[2022-07-13] MEDS: FORMOTEROL FUMARATE 20 MCG/2 ML NEBU INHALATION SCH (21:09)
[2022-07-14 06:00] LABS: Glucose,Whole Blood 240 mg/dL (70-110)
[2022-07-14] MEDS: methylPREDNISolone SOD SUCCI 125 MG/2 ML VIAL IV SCH (06:09)
[2022-07-14] MEDS: INSULIN ASPART (NovoLOG) 100 UNIT/ML VIAL SQ SCH ×4 (06:10→20:48)
[2022-07-14] MEDS: DEXTROSE 5%-0.9% NACL 1,000 ML IV SCH (06:23)
[2022-07-14] MEDS: HEPARIN SODIUM,PORCINE/PF 5,000 UNIT/0.5 ML SYRINGE SQ SCH ×2 (07:42→20:48)
[2022-07-14] MEDS: AZITHROMYCIN 500 MG in SODIUM CHLORIDE 0.9% 250 ML IVPB SCH (07:42)
[2022-07-14] MEDS: FORMOTEROL FUMARATE 20 MCG/2 ML NEBU INHALATION SCH ×2 (07:47→20:04)
[2022-07-14] MEDS: IPRATROPIUM-ALBUTEROL 3 ML NEB INHALATION SCH ×4 (07:47→20:04)
[2022-07-14] MEDS: BUDESONIDE 1 MG/2 ML NEBU INHALATION SCH ×2 (07:47→20:04)
[2022-07-14 08:59] LABS: Basophils % (A) 0 %; Eosinophils % (A) 1 %; HCT 42.1 % (39.0-53.0); Lymphocytes # (A) 0.7 k/uL (1.0-4.8); Lymphocytes % (A) 21 %; MCH 29.4 pg (25.0-35.0); Mean Platelet Volume 8.3; Monocytes # (A) 0.1 k/uL (0-1.0); Monocytes % (A) 4 %; Neutrophils # (A) 2.4 k/uL (1.3-7.7); Neutrophils % (A) 74 %; Platelet Count 152 k/uL (150-450); RBC 4.43 m/uL (4.30-5.90); RDW 13.3 % (11.5-15.5); WBC 3.2 k/uL (3.8-10.6)
[2022-07-14 09:24] LABS: African American GFR (CKD) 43 (>60 ml/min/1.73 sqM); Anion Gap 8 mmol/L; Blood Urea Nitrogen 26 mg/dL (9-20); C Reactive Protein <0.5 mg/dL (<1.0); Calcium 8.4 mg/dL (8.4-10.2); Carbon Dioxide 22 mmol/L (22-30); Chloride 112 mmol/L (98-107); Glucose 245 mg/dL (74-99); Non-African American GFR(CKD) 37 (>60 ml/min/1.73 sqM); Potassium 4.8 mmol/L (3.5-5.1); Sodium 142 mmol/L (137-145)
--- NOTE | 2022-07-14 10:22 | XR ---
EXAMINATION TYPE: XR chest 1V portable DATE OF EXAM: 07/14/2022 COMPARISON: NONE HISTORY: Shortness of breath TECHNIQUE: Single frontal view of the chest is obtained. FINDINGS: There is elevation right hemidiaphragm. There is a large calcified pleural based plaque in the right mid and lower lung zone. There is a probable right pleural effusion which is possibly loculated. The heart is enlarged and the pulmonary vasculature appears cephalized. There is no pneumothorax. There is no left lung pleural effusion. The osseous structures are osteopenic but intact IMPRESSION: 1. Acute cardiopulmonary disease as described above. Possible CHF and clinical correlation is recomme nded. 2. Chronic cardiopulmonary disease on the right with large pleural based plaque, volume loss and pleu ral effusion as described above.
[2022-07-14] MEDS ORDERED: FUROSEMIDE 10 MG/ML 4 ML VIAL IV STA ×2 (11:40→22:46)
--- NOTE | 2022-07-14 11:40 | P.PN ---
Subjective Progress Note Date: 07/14/22 This is 72-year-old male patient who resides at [facility] with a history of dementia and medical debility up to approximately one year following an extended hospitalization after prostate surgery. He also has a history of severe pneumonia at the age of 14 requiring a 6 weeks stay at [facility] with multiple drainage procedures for abscess in the right lung according to his brothers who are at the bedside. They state he did not have tuberculosis. He was noted to be more short of breath at the [facility] and was transferred here for further evaluation. A computed tomography scan of the chest revealed volume loss involving the right hemithorax with dense pleural thickening and calcific ation associated with a fibrothorax. Computed tomography scan of the brain revealed marketed atrophy unchanged compared to previous in 2020. White count 3.9. Hemoglobin 12.2. Platelets 185. Sodium 139. Potassium 4.6. Bicarb 27. BUN 31. Creatinine 2.01. Glucose 105. Influenza screen negative. RSV screen negative. COVID-19 screen negative. He is seen today in consultation on the regular medical floor. Currently resting in bed. He is maintaining O2 saturations in the 90s on 3 L nasal cannula. Afebrile. Able to recognize his brothers. He's been initiated on DuoNeb inhalations, Pulmicort and performs inhalations, IV Solu-Medrol. Antibiotics in the form of ceftriaxone. Heparin for DVT prophylaxis. D5W half-normal saline at 100 ML's per hour. The patient is seen today 07/14/2022 in follow-up on the selective care unit. He is more obtunded today compared to yesterday. He is arousable. He is moving all fours. He is answering some yes no questions. Maintaining O2 saturations up to 99% on 3 L/m per nasal cannula. Chest x-ray reveals some fluid volume overload. There is chronic cardiopulmonary disease in the right with large pleural-based plaque, volume loss and pleural effusion. No left lung pleural effusion. No pneumothorax. Urine culture is pending. White count 3.2. Hemoglobin 13.0. Platelets 152. Sodium 142. Potassium 4.8. Bicarb 22. BUN 26. Creatinine 1.78. Glucose 245. Ammonia level less than 9. Continued on ceftriaxone and azithromycin. Continued on bronchodilators. Remains on IV Solu-Medrol. ABGs are pending. Neurology consult pending. Objective - Vital Signs Vital signs: Vital Signs Temp 97.5 F L 07/14/22 07:40 Pulse 74 07/14/22 11:27 Resp 15 07/14/22 11:27 BP 144/66 07/14/22 11:27 Pulse Ox 99 07/14/22 11:27 FiO2 Intake & Output 07/13/22 07/14/22 07/14/22 18:59 06:59 18:59 Intake Total 480 Output Total 650 400 350 Balance -650 80 -350 Intake: Oral 480 Output: Urine 650 400 350 Other: Voiding Method Indwelling Catheter Indwelling Catheter Indwelling Catheter # Voids 1 # Bowel Movements 1 - Exam GENERAL EXAM: Arousable, slow to respond, 72-year-old male, on 3 L nasal cannula, comfortable in no apparent distress. HEAD: Normocephalic. EYES: Normal reaction of pupils, equal size. NOSE: Clear with pink turbinates. THROAT: No erythema or exudates. NECK: No masses, no JVD. CHEST: No chest wall deformity. LUNGS: Equal air entry with few crackles in the right lower lobe. CVS: S1 and S2 normal with no audible murmur, regular rhythm. ABDOMEN: No hepatosplenomegaly, normal bowel sounds, no guarding or rigidity. SPINE: No scoliosis or deformity SKIN: No rashes CENTRAL NERVOUS SYSTEM: No focal deficits, tone is normal in all 4 extremities. EXTREMITIES: There is no peripheral edema. No clubbing, no cyanosis. Peripheral pulses are intact. - Labs CBC & Chem 7: 07/14/22 08:32 07/14/22 08:32 Labs: Abnormal Lab Results - Last 24 Hours (Table) 07/13/22 07/13/22 07/13/22 Range/Units 10:52 11:34 16:37 WBC (3.8-10.6) k/uL Lymphocytes # (1.0-4.8) k/uL Chloride (98-107) mmol/L BUN (9-20) mg/dL Creatinine (0.66-1.25) mg/dL Glucose (74-99) mg/dL POC Glucose (mg/dL) 177 H 206 H (70-110) mg/dL Procalcitonin 0.20 H (0.02-0.09) ng/mL 07/13/22 07/14/22 07/14/22 Range/Units 20:06 05:58 08:32 WBC 3.2 L (3.8-10.6) k/uL Lymphocytes # 0.7 L (1.0-4.8) k/uL Chloride (98-107) mmol/L BUN (9-20) mg/dL Creatinine (0.66-1.25) mg/dL Glucose (74-99) mg/dL POC Glucose (mg/dL) 242 H 240 H (70-110) mg/dL Procalcitonin (0.02-0.09) ng/mL 07/14/22 Range/Units 08:32 WBC (3.8-10.6) k/uL Lymphocytes # (1.0-4.8) k/uL Chloride 112 H (98-107) mmol/L BUN 26 H (9-20) mg/dL Creatinine 1.78 H (0.66-1.25) mg/dL Glucose 245 H (74-99) mg/dL POC Glucose (mg/dL) (70-110) mg/dL Procalcitonin (0.02-0.09) ng/mL Microbiology - Last 24 Hours (Table) 07/13/22 15:06 Urine Culture - Preliminary Urine,Voided Assessment and Plan Assessment: Acute hypoxic respiratory failure secondary to acute exacerbation of chronic obstructive pulmonary disease and possible early right lower lobe pneumonia. There is volume loss involving the right hemithorax with a dense pleural thickening and calcification could be associated with fibrothorax. The patient does have a history of significant pneumonia with suspected abscess and multiple drainage procedures at [facility] back at the age of 14. He was hospitalized for 6 weeks at that time. Altered mental status secondary to above possible metabolic encephalopathy. Computed tomography scan of the brain revealed no acute intracranial process Suspected urinary tract infection. Pro-calcitonin 0.20 Culture pending remains on ceftriaxone and azithromycin Diarrhea, C. difficile screen negative History of medical debility and near bedridden for the past year following a extended hospitalization after prostate surgery. Currently residing in [facility] History of dementia History of chronic tobacco dependence however quit approximately 3 years ago Diabetes mellitus Hypertension Hyperlipidemia COVID-19 infection in May 2020 Chronic kidney disease Chronic anemia Legal blindness History of gout History of urinary retention History of depression Poor overall functional performance based on the above-mentioned multiple comorbidities Plan: The patient was seen and evaluated Computed tomography scan of the brain, chest x-ray, medications and labs reviewed Worsening mentation Consult neurology Ammonia level within normal limits ABGs pending Continue antibiotics Continue bronchodilators, Solu-Medrol Give Lasix 40 mg IVP 1 Titrate the FiO2 as tolerated Urine culture pending Discussed with brother at the bedside We will continue to follow I have personally seen and examined the patient, performed the documentation and the assessment and plan as written. Number of minutes spent on the visit: 10.
[2022-07-14 11:48] LABS: Glucose,Whole Blood 231 mg/dL (70-110)
[2022-07-14 14:14] LABS: Allen Test Performed? Yes
--- NOTE | 2022-07-14 14:22 | P.PN ---
Progress Note - Text Progress Note Date: 07/14/22 INTERVAL HISTORY : 72-year-old male patient who resides at [facility] with a history of dementia and medical debility up to approximately one year following an extended hospitalization after prostate surgery. He also has a history of severe pneumonia at the age of 14 requiring a 6 weeks stay at [facility] with multiple drainage procedures for abscess in the right lung according to his brothers who are at the bedside. A computed tomography scan of the chest revealed volume loss involving the right hemithorax with dense pleural thickening and calcification associated with a fibrothorax. Computed tomography scan of the brain revealed marketed atrophy unchanged compared to previous in 2020. SUBJECTIVE : Patient continues to remain confused and disoriented does open eyes however not following commands REVIEW OF SYSTEMS: Not obtained secondary to patient mentation and confusion PHYSICAL EXAMINATION: GENERAL: ill appearance, disoriented does respond to pain stimulus HEENT: Pupils are round and equally reacting to light CARDIOVASCULAR: S1 and S2 present. No murmurs, rubs, or gallops. PULMONARY: Rhonchi audible, nasal cannula in place. ABDOMEN: Soft, nontender, nondistended, normoactive bowel sounds. No palpable organomegaly. MUSCULOSKELETAL: No joint swelling or deformity. EXTREMITIES: No cyanosis, clubbing, or pedal edema. NEUROLOGICAL: Exam limited secondary to patient mentation no focal deficit noted moving bilateral upper and lower extremity SKIN: No rashes. ASSESMENT & PLAN * Acute hypoxic respiratory failure secondary to acute exacerbation of chronic obstructive pulmonary disease * Right lower lobe pneumonia * Acute metabolic encephalopathy * Diarrhea stool C. diff negative * History of dementia * Diabetes mellitus * Hypertension * Chronic kidney disease * History of depression * History of urinary retention * In regard to respiratory failure continue patient on 3 L of oxygen, pulmonary medicine following, continue patient on breathing treatment, continue antibiotic * Workup for pneumonia initiated urine Legionella ordered, continue patient on Rocephin and azithromycin day to * For encephalopathy neurology consulted CT head negative for acute CVA, ammonia and arterial blood gas ordered * Patient resuscitate with fluids at the time of admission which has been discontinued secondary to concern for pulmonary edema patient was given 1 dose of Lasix for pulmonary medicine * For diabetes continue Accu-Cheks continue correctional insulin * Continue to monitor renal profile * On subcu heparin for DVT prophylaxis * CODE STATUS is full code
[2022-07-14 14:29] LABS: ABG Base Excess -3.1 mmol/L; ABG HCO3 25 mmol/L (21-25); ABG PCO2 63 mmHg (35-45); ABG PH 7.21 (7.35-7.45); ABG PO2 96 mmHg (83-108); ABG TCO2 27 mmol/L (19-24)
[2022-07-14 14:32] LABS: ABG Oxygen Saturation 97.9 % (94-97)
[2022-07-14] MEDS: methylPREDNISolone SOD SUCCI 40 MG/ML 1 ML VIAL IV SCH ×2 (15:31→23:17)
[2022-07-14 16:14] LABS: Glucose,Whole Blood 245 mg/dL (70-110)
[2022-07-14 17:14] LABS: Glucose,Whole Blood 250 mg/dL (70-110)
[2022-07-14] MEDS ORDERED: CLEVIDIPINE BUTYRATE 25 MG in EMPTY BAG 1 BAG IV SCH (17:30)
[2022-07-14 19:58] LABS: Glucose,Whole Blood 261 mg/dL (70-110)
--- NOTE | 2022-07-15 01:36 | P.CNNES ---
History of Present Illness Consult date: 07/14/22 Requesting physician: Daphne Jeffery Reason for Consult: Altered mental status History of Present Illness: Patient is a 72-year-old male with history of hypertension, diabetes, hyperlipidemia, dementia and prostate disorder, resident of [facility] was brought to the hospital by ambulance on 07/12/2022 at 11:29 PM for shortness of breath and abnormal chest x-ray. EMS flow sheet not available in the chart. Patient not able to provide any history, and is noncooperative. As per ED report, patient has history of dementia, and is alert and oriented 1 due to baseline mental disability. He was found to have abnormal chest x-ray after he was noted to be short of breath. Patient's vitals on arrival blood pressure 120/86, pulse rate 60, temperature 98.2, respiration 20. Patient's blood test shows WBC 3.9, hemoglobin 12.2, platelets 185. Electrolytes are normal, BUN 31, creatinine 2.01, which has improved to 26 and 1.78 respectively. Patient's VBG showed pH of 7.25, pCO2 of 54 and HCO3 23. Patient's ABG with pH 7.21, pCO2 63, pO2 96, saturation 97.9%. Ammonia is < 9, CRP normal 0.5. CT head showed mild atrophy. Moderate chronic ischemic white matter changes, unchanged from previous study. Chronic inflammatory changes in paranasal sinuses. I personally reviewed CT head, agree with the findings. Patient's influenza screen, RSV and dennis virus PCR negative. EKG showed sinus rhythm with frequent ventricular premature complexes. CT of the chest revealed volume loss involving the right hemithorax with dense pleural thickening and calcification can be associated with the Fibracol thorax. Differential diagnoses include asbestos related disease, prior trauma or hemothorax, prior thoracic empyema or tuberculosis pleural effusion. Small area of subsegmental consolidation adjacent to the pleural calcification. Atelectasis favored over early pneumonitis. Cardiomegaly. Indeterminate bilateral adrenal nodules for which adrenal adenoma favored. Pulmonary has seen the patient, diagnosed with acute hypoxic respiratory failure secondary to acute exacerbation of COPD and p ossibly early right lower lobe pneumonia. Patient in the hospital was noted to be lethargic, with abnormal pCO2, therefore he was transferred to ICU for close evaluation. According to the nursing report, patient underwent prostate surgery 2 years ago and since then he has gone downhill. He has been living in a correction, is wheelchair bound, and requires Lola lift to move him. He is partly oriented. Patient has been started on BiPAP and see arrival to the ICU. I came over to see the patient, and patient was in ICU. BiPAP was on. Patient not cooperating with the examination, very irritable, edgy. He wishes continuously say "shut up", or "get the hell out of here". Review of Systems Patient would not answer to any questions. He continues to say "shut up". ROS unobtainable: due to mental status Past Medical History Past Medical History: Dementia, Diabetes Mellitus, Hyperlipidemia, Hypertension, Prostate Disorder Additional Past Medical History / Comment(s): Covid 19 on 05/31/20. Kidney dx- anemia. left bundle branch block. muscle weakness (generalized). parathyroid gland. obesity. Hyperlipidemia. Hypertensive Retinopathy. Legal Blindness. 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 Ventricular Tachycardia. Idiopathic Gout. Spinal Stenosis. Obstructive and reflux uropathy. Retention of urine History of Any Multi-Drug Resistant Organisms: None Reported Past Surgical History: Prostate Surgery Additional Past Surgical History / Comment(s): prostate removed. Past Psychological History: Depression Smoking Status: Never smoker Past Alcohol Use History: None Reported Past Drug Use History: None Reported - Past Family History Father Family Medical History: Cancer, Diabetes Mellitus Additional Family Medical History / Comment(s): prostate CA. Mother Family Medical History: CVA/TIA, Diabetes Mellitus Medications and Allergies Home Medications Medication Instructions Recorded Confirmed Type Acetaminophen Tab [Tylenol] 650 mg PO Q6H PRN 07/13/22 07/13/22 History Atorvastatin Calcium [Lipitor] 40 mg PO HS 07/13/22 07/13/22 History Bumetanide [Bumex] 1 mg PO DAILY 07/13/22 07/13/22 History Cholecalciferol [Vitamin D3 (25 50 mcg PO DAILY 07/13/22 07/13/22 History Mcg = 1000 Iu)] Insulin Glargine,Hum.rec.anlog 20 units SQ DAILY 07/13/22 07/13/22 History [Lantus Solostar Pen] Insulin Glargine,Hum.rec.anlog 26 units SQ HS 07/13/22 07/13/22 History [Lantus Solostar Pen] Isosorbide Mononitrate ER [Imdur] 60 mg PO DAILY 07/13/22 07/13/22 History Loperamide HCl [Loperamide] 2 mg PO Q6H PRN 07/13/22 07/13/22 History Mag Hydrox/Aluminum Hyd/Simeth 10 ml PO Q6H PRN 07/13/22 07/13/22 History [Mylanta Maximum Strength Liq] Magnesium Hydroxide [Milk of 7,200 mg PO Q48H PRN 07/13/22 07/13/22 History Magnesia Concentrate] Metoprolol Tartrate [Lopressor] 25 mg PO BID 07/13/22 07/13/22 History Sennosides-Docusate Sodium 1 tab PO DAILY 07/13/22 07/13/22 History [Senokot-S] Sertraline [Zoloft] 50 mg PO DAILY 07/13/22 07/13/22 History allopurinoL 100 mg PO DAILY 07/13/22 07/13/22 History amLODIPine [Norvasc] 10 mg PO DAILY 07/13/22 07/13/22 History guaiFENesin SYRUP 100MG/5ML 100 mg PO Q4H PRN 07/13/22 07/13/22 History [Robitussin] lisinopriL [Zestril] 10 mg PO DAILY 07/13/22 07/13/22 History Allergies Allergy/AdvReac Type Severity Reaction Status Date / Time No Known Allergies Allergy Verified 06/15/20 20:41 Physical Examination - Vital Signs Vital Signs: Vital Signs Temp Pulse Pulse Resp BP Pulse Ox FiO2 07/14/22 16:20 40 07/14/22 16:05 72 07/14/22 15:56 68 07/14/22 15:45 40 07/14/22 15:29 97.5 F L 76 17 153/77 98 07/14/22 15:11 40 07/14/22 11:46 72 07/14/22 11:36 67 07/14/22 11:27 74 15 144/66 99 07/14/22 08:13 68 07/14/22 08:01 70 07/14/22 08:00 70 07/14/22 07:53 99 07/14/22 07:47 67 67 18 07/14/22 07:40 97.5 F L 67 16 149/83 99 07/14/22 03:41 98.2 F 75 18 139/69 94 L 07/14/22 01:46 52 L 07/13/22 23:28 97.9 F 72 17 148/72 95 07/13/22 19:50 98.1 F 68 18 162/68 97 07/13/22 19:48 52 L Intake and Output 07/14/22 07/14/22 07/14/22 06:59 14:59 22:59 Intake Total 480 1440 Output Total 400 750 400 Balance 80 690 -400 Intake: Oral 480 1440 Output: Urine 400 750 400 Other: Voiding Method Indwelling Catheter Indwelling Catheter Patient is an elderly male. Patient is laying in the bed, having BiPAP on. Patient is slightly lethargic, but did wake up and was very irritable and edgy. Patient is possibly keeps his eyes closed. He was able to tell me his name, but states he is 37 years old. He thinks he is in [place]. Patient frequently says "I don't know". Speech and language functions are normal. Detailed testing could not be performed because of mental status. Patient not cooperating for naming any object, or following commands. No aphasia or dysarthria. Attention, concentration and fund of knowledge is limited. On cranial nerve examination, patient keeps his eyes closed. On trying to open it manually, he became somewhat belligerent, irritable and would force his eyes closed stronger. Visual garcia could not be tested. Extraocular muscles could not be tested. Hearing appears slightly decreased. Face appears symmetric. Lower cranial nerves could not be tested. On muscle strength testing, patient did not cooperate with muscle strength testing. His tone could not be checked. His matrix inspector appears normal on the right, slightly weaker on the left. He moves his right arm better than the left arm. He slightly withdraws his right leg to painful stimuli, but much less or none with his left leg. Deep tendon reflexes are 1+ in the biceps and brachioradialis bilaterally. Absent in the lower limbs, plantars are possibly upgoing. Sensory to touch could not be assessed, but he withdraws to painful stimuli as mentioned above. Cerebellar function could not be tested. Tone appears normal, bulk of muscles decreased particularly in the calves with some atrophy. Patient is wheelchair bound. On general examination, patient did not cooperate with testing for carotid bruit or murmur. Abdomen is soft and nontender. Chest is clear on consultation. Abdomen is soft nontender. No organomegaly, bowel sounds prese nt. Peripheral pulses are present. No edema. Results - Laboratory Findings CBC and BMP: 07/14/22 08:32 07/14/22 08:32 Abnormal Lab Findings: Abnormal Labs 07/12/22 07/12/22 07/13/22 23:58 23:58 06:19 WBC RBC 4.07 L Hgb 12.2 L Hct 37.2 L Lymphocytes # 0.9 L ABG pH ABG pCO2 ABG Total CO2 ABG O2 Saturation VBG pH VBG pCO2 VBG HCO3 Chloride BUN 31 H Creatinine 2.01 H Glucose 105 H POC Glucose (mg/dL) 48 L Procalcitonin 07/13/22 07/13/22 07/13/22 06:43 10:52 10:52 WBC RBC Hgb Hct Lymphocytes # ABG pH ABG pCO2 ABG Total CO2 ABG O2 Saturation VBG pH 7.25 L VBG pCO2 54 H VBG HCO3 23 L Chloride BUN Creatinine Glucose POC Glucose (mg/dL) 59 L Procalcitonin 0.20 H 07/13/22 07/13/22 07/13/22 11:34 16:37 20:06 WBC RBC Hgb Hct Lymphocytes # ABG pH ABG pCO2 ABG Total CO2 ABG O2 Saturation VBG pH VBG pCO2 VBG HCO3 Chloride BUN Creatinine Glucose POC Glucose (mg/dL) 177 H 206 H 242 H Procalcitonin 07/14/22 07/14/22 07/14/22 05:58 08:32 08:32 WBC 3.2 L RBC Hgb Hct Lymphocytes # 0.7 L ABG pH ABG pCO2 ABG Total CO2 ABG O2 Saturation VBG pH VBG pCO2 VBG HCO3 Chloride 112 H BUN 26 H Creatinine 1.78 H Glucose 245 H POC Glucose (mg/dL) 240 H Procalcitonin 07/14/22 07/14/22 07/14/22 11:47 14:11 16:13 WBC RBC Hgb Hct Lymphocytes # ABG pH 7.21 L ABG pCO2 63 H ABG Total CO2 27 H ABG O2 Saturation 97.9 H VBG pH VBG pCO2 VBG HCO3 Chloride BUN Creatinine Glucose POC Glucose (mg/dL) 231 H 245 H Procalcitonin Assessment and Plan Assessment: * Altered mental status, likely due to metabolic encephalopathy. Reasons multifactorial as mentioned below * COPD exacerbation * Right lower lobe pneumonia * History of medical debility and near bedridden since hospitalization for prostate surgery over a year ago. * Spinal stenosis * Acute renal insufficiency * Hypercapnia * Diabetes, not well controlled * Recent episode of hypoglycemia 07/13/2022 with blood glucose 48 * Hypertension * Dementia * Anemia * Legal blindness * History of prostate disorder Plan: * Patient probably has metabolic encephalopathy on top of his underlying dementia. Patient was not cooperative with the examination. * CT had revealed significant generalized atrophy with no acute process. * Medical management as per IM and pulmonary medicine * Ammonia < 9, CRP normal. * Check B12, folate, hemoglobin A1c * Neurology will follow clinically. Discussed with nursing staff in detail. * Dr. Valentin Rod starting neurology service on the morning. Thank you for the consult.
[2022-07-15 06:00] LABS: HCT 40.6 % (39.0-53.0); HGB 13.1 gm/dL (13.0-17.5); MCHC 32.1 g/dL (31.0-37.0); MCV 93.2 fL (80.0-100.0); Mean Platelet Volume 8.6; Platelet Count 166 k/uL (150-450); RBC 4.36 m/uL (4.30-5.90); RDW 13.8 % (11.5-15.5); WBC 5.8 k/uL (3.8-10.6)
[2022-07-15 06:10] LABS: African American GFR (CKD) 37 (>60 ml/min/1.73 sqM); Blood Urea Nitrogen 35 mg/dL (9-20); C Reactive Protein <0.5 mg/dL (<1.0); Calcium 8.5 mg/dL (8.4-10.2); Carbon Dioxide 25 mmol/L (22-30); Chloride 109 mmol/L (98-107); Glucose 196 mg/dL (74-99); Magnesium 2.2 mg/dL (1.6-2.3); Non-African American GFR(CKD) 32 (>60 ml/min/1.73 sqM)
[2022-07-15 06:40] LABS: Glucose,Whole Blood 194 mg/dL (70-110)
[2022-07-15 06:43] LABS: Anion Gap 11 mmol/L; Potassium 4.9 mmol/L (3.5-5.1); Sodium 145 mmol/L (137-145)
[2022-07-15] MEDS: INSULIN ASPART (NovoLOG) 100 UNIT/ML VIAL SQ SCH ×4 (06:49→20:47)
--- NOTE | 2022-07-15 07:19 | XR ---
EXAMINATION TYPE: XR chest 1V portable DATE OF EXAM: 07/15/2022 HISTORY: Shortness of breath. COMPARISON: 07/14/2022 TECHNIQUE: Single view of the chest is submitted. FINDINGS: Demonstrated are scattered senescent parenchymal change. Right mid and right lower lobe infiltrate persists. Improving aeration left lower lobe. The heart is stable. Hilar and mediastinal structures are within normal limits. Degenerative changes are seen of the dorsal spine. IMPRESSION: 1. Right mid and right lower lobe infiltrate persists. Improving aeration left lower lobe.
[2022-07-15] MEDS: FORMOTEROL FUMARATE 20 MCG/2 ML NEBU INHALATION SCH ×2 (07:56→19:31)
[2022-07-15] MEDS: IPRATROPIUM-ALBUTEROL 3 ML NEB INHALATION SCH ×4 (07:56→19:31)
[2022-07-15] MEDS: BUDESONIDE 1 MG/2 ML NEBU INHALATION SCH ×2 (07:56→19:31)
[2022-07-15] MEDS: METOPROLOL TARTRATE 25 MG TAB PO SCH ×2 (09:53→20:47)
[2022-07-15] MEDS: AZITHROMYCIN 500 MG in SODIUM CHLORIDE 0.9% 250 ML IVPB SCH (09:53)
[2022-07-15] MEDS: methylPREDNISolone SOD SUCCI 40 MG/ML 1 ML VIAL IV SCH ×2 (09:53→16:32)
[2022-07-15] MEDS: HEPARIN SODIUM,PORCINE/PF 5,000 UNIT/0.5 ML SYRINGE SQ SCH ×2 (09:53→20:47)
[2022-07-15] MEDS: PANTOPRAZOLE 40 MG/10 ML VIAL IVP SCH (09:53)
--- NOTE | 2022-07-15 10:19 | P.PN ---
Subjective Progress Note Date: 07/15/22 This is 72-year-old male patient who resides at [facility] with a history of dementia and medical debility up to approximately one year following an extended hospitalization after prostate surgery. He also has a history of severe pneumonia at the age of 14 requiring a 6 weeks stay at [facility] with multiple drainage procedures for abscess in the right lung according to his brothers who are at the bedside. They state he did not have tuberculosis. He was noted to be more short of breath at the [facility] and was transferred here for further evaluation. A computed tomography scan of the chest revealed volume loss involving the right hemithorax with dense pleural thickening and calcific ation associated with a fibrothorax. Computed tomography scan of the brain revealed marketed atrophy unchanged compared to previous in 2020. White count 3.9. Hemoglobin 12.2. Platelets 185. Sodium 139. Potassium 4.6. Bicarb 27. BUN 31. Creatinine 2.01. Glucose 105. Influenza screen negative. RSV screen negative. COVID-19 screen negative. He is seen today in consultation on the regular medical floor. Currently resting in bed. He is maintaining O2 saturations in the 90s on 3 L nasal cannula. Afebrile. Able to recognize his brothers. He's been initiated on DuoNeb inhalations, Pulmicort and performs inhalations, IV Solu-Medrol. Antibiotics in the form of ceftriaxone. Heparin for DVT prophylaxis. D5W half-normal saline at 100 ML's per hour. The patient is seen today 07/14/2022 in follow-up on the selective care unit. He is more obtunded today compared to yesterday. He is arousable. He is moving all fours. He is answering some yes no questions. Maintaining O2 saturations up to 99% on 3 L/m per nasal cannula. Chest x-ray reveals some fluid volume overload. There is chronic cardiopulmonary disease in the right with large pleural-based plaque, volume loss and pleural effusion. No left lung pleural effusion. No pneumothorax. Urine culture is pending. White count 3.2. Hemoglobin 13.0. Platelets 152. Sodium 142. Potassium 4.8. Bicarb 22. BUN 26. Creatinine 1.78. Glucose 245. Ammonia level less than 9. Continued on ceftriaxone and azithromycin. Continued on bronchodilators. Remains on IV Solu-Medrol. ABGs are pending. Neurology consult pending. The patient is seen today 07/15/2022 in follow-up in the intensive care unit. Last night he required BiPAP support and was more obtunded and subsequently transferred to the ICU. Chest x-ray continues to show similar right mid and right lower lobe infiltrates. Improved aeration in the left lower lobe. He had been seen and evaluated by neurology who HIS altered mental status was likely du e to metabolic encephalopathy and urine culture positive for gram-negative bacilli. White count 5.8. He will 13.1. Sodium 145. Potassium 4.9. Bicarb 25. BUN 35. Creatinine 2.01. Glucose 196. Hemoglobin A1c 6.0. The patient is awake and alert this morning. Answering yes and no questions. Currently on BiPAP 14/6 at 40% FiO2. He has normal saline at 20 ML's per hour. He is on antibiotics in the form of ceftriaxone and azithromycin. Objective - Vital Signs Vital signs: Vital Signs Temp 97.7 F 07/15/22 08:00 Pulse 84 07/15/22 09:30 Resp 15 07/15/22 09:30 BP 159/100 07/15/22 09:30 Pulse Ox 100 07/15/22 09:30 FiO2 40 07/15/22 08:18 Intake & Output 07/14/22 07/15/22 07/15/22 18:59 06:59 18:59 Intake Total 1440 140 60 Output Total 1620 490 105 Balance -180 -350 -45 Weight 98.2 kg Intake: IV 140 60 IV Fluid 140 60 Oral 1440 Output: Urine 1620 490 105 Other: Voiding Method Indwelling Catheter Indwelling Catheter - Exam GENERAL EXAM: Arousable, slow to respond, 72-year-old male, on BiPAP 14/6 at 40% FiO2, comfortable in no apparent distress. HEAD: Normocephalic. EYES: Normal reaction of pupils, equal size. NOSE: Clear with pink turbinates. THROAT: No erythema or exudates. NECK: No masses, no JVD. CHEST: No chest wall deformity. LUNGS: Equal air entry with few crackles in the right lower lobe. CVS: S1 and S2 normal with no audible murmur, regular rhythm. ABDOMEN: No hepatosplenomegaly, normal bowel sounds, no guarding or rigidity. SPINE: No scoliosis or deformity SKIN: No rashes CENTRAL NERVOUS SYSTEM: No focal deficits, tone is normal in all 4 extremities. EXTREMITIES: There is no peripheral edema. No clubbing, no cyanosis. Peripheral pulses are intact. - Labs CBC & Chem 7: 07/15/22 05:16 07/15/22 05:16 Labs: Abnormal Lab Results - Last 24 Hours (Table) 07/14/22 07/14/22 07/14/22 Range/Units 11:47 14:11 16:13 ABG pH 7.21 L (7.35-7.45) ABG pCO2 63 H (35-45) mmHg ABG Total CO2 27 H (19-24) mmol/L ABG O2 Saturation 97.9 H (94-97) % Chloride (98-107) mmol/L BUN (9-20) mg/dL Creatinine (0.66-1.25) mg/dL Glucose (74-99) mg/dL POC Glucose (mg/dL) 231 H 245 H (70-110) mg/dL 07/14/22 07/14/22 07/15/22 Range/Units 17:13 19:57 05:16 ABG pH (7.35-7.45) ABG pCO2 (35-45) mmHg ABG Total CO2 (19-24) mmol/L ABG O2 Saturation (94-97) % Chloride 109 H (98-107) mmol/L BUN 35 H (9-20) mg/dL Creatinine 2.01 H (0.66-1.25) mg/dL Glucose 196 H (74-99) mg/dL POC Glucose (mg/dL) 250 H 261 H (70-110) mg/dL 07/15/22 Range/Units 06:39 ABG pH (7.35-7.45) ABG pCO2 (35-45) mmHg ABG Total CO2 (19-24) mmol/L ABG O2 Saturation (94-97) % Chloride (98-107) mmol/L BUN (9-20) mg/dL Creatinine (0.66-1.25) mg/dL Glucose (74-99) mg/dL POC Glucose (mg/dL) 194 H (70-110) mg/dL Microbiology - Last 24 Hours (Table) 07/13/22 15:06 Urine Culture - Preliminary Urine,Voided Gram Neg Bacilli Assessment and Plan Assessment: Acute hypoxic respiratory failure secondary to acute exacerbation of chronic obstructive pulmonary disease and possible early right lower lobe pneumonia. There is volume loss involving the right hemithorax with a dense pleural thickening and calcification could be associated with fibrothorax. Urinary tract infection secondary to gram-negative bacilli. Pro-calcitonin 0.20 Culture pending remains on ceftriaxone and azithromycin Altered mental status secondary to above possible metabolic encephalopathy. Computed tomography scan of the brain revealed no acute intracranial process Diarrhea, C. difficile screen negative History of medical debility and near bedridden for the past year following a extended hospitalization after prostate surgery. Currently residing in [facility] History of dementia History of chronic tobacco dependence however quit approximately 3 years ago History of significant pneumonia with suspected abscess and multiple drainage procedures at [facility] back at the age of 14. He was hospitalized for 6 weeks at that time. Diabetes mellitus Hypertension Hyperlipidemia COVID-19 infection in May 2020 Chronic kidney disease Chronic anemia Legal blindness History of gout History of urinary retention History of depression Poor overall functional performance based on the above-mentioned multiple comorbidities Plan: The patient was seen and evaluated Chest x-ray, medications and labs reviewed The patient was transferred into the intensive care unit last evening Currently on BiPAP, transitioned to nasal cannula as tolerated Discontinue 0.9% normal saline Change to 0.45% normal saline at 100 MLS per hour Continue antibiotics Continue bronchodilators, Solu-Medrol Neurology consult appreciated Continue in the ICU for another 24 hours We will continue to follow I have personally seen and examined the patient, performed the documentation and the assessment and plan as written. Number of minutes spent on the visit: 10.
[2022-07-15] MEDS: SODIUM CHLORIDE 0.45% 1,000 ML IV SCH (10:23)
[2022-07-15 11:08] LABS: Glucose,Whole Blood 171 mg/dL (70-110)
--- NOTE | 2022-07-15 12:06 | P.PN ---
Subjective Progress Note Date: 07/15/22 Principal diagnosis: Acute encephalopathy, shortness of breath respiratory failure INTERVAL HISTORY : 72-year-old male patient who resides at [facility] with a history of dementia and medical debility up to approximately one year following an extended hospitalization after prostate surgery. He also has a history of severe pneumonia at the age of 14 requiring a 6 weeks stay at [facility] with multiple drainage procedures for abscess in the right lung according to his brothers who are at the bedside. A computed tomography scan of the chest revealed volume loss involving the right hemithorax with dense pleural thickening and calcification associated with a fibrothorax. Computed tomography scan of the brain revealed marketed atrophy unchanged compared to previous in 2020. While on medical floor patient was treated for pneumonia. Patient was noted to have worsening encephalopathy and hypercapnia and was transferred to ICU for BiPAP SUBJECTIVE : Patient seen and evaluated bedside alert and oriented 2 at least mentation has improved significantly REVIEW OF SYSTEMS: CONSTITUTIONAL: No fever, no malaise, no fatigue. HEENT: No recent visual problems or hearing problems. Denied any sore throat. CARDIOVASCULAR: No chest pain, orthopnea, PND, no palpitations, no syncope. PULMONARY: Shortness of breath and confusion has improved. GASTROINTESTINAL: No diarrhea, no nausea, no vomiting, no abdominal pain. NEUROLOGICAL: No headaches, no weakness, no numbness. HEMATOLOGICAL: Denies any bleeding or petechiae. GENITOURINARY: Denies any burning micturition, frequency, or urgency. MUSCULOSKELETAL/RHEUMATOLOGICAL: Denies any joint pain, swelling, or any muscle pain. ENDOCRINE: Denies any polyuria or polydipsia. PHYSICAL EXAMINATION: GENERAL: ill appearance, disoriented does respond to pain stimulus HEENT: Pupils are round and equally reacting to light CARDIOVASCULAR: S1 and S2 present. No murmurs, rubs, or gallops. PULMONARY: Rhonchi audible, nasal cannula in place. ABDOMEN: Soft, nontender, nondistended, normoactive bowel sounds. No palpable organomegaly. MUSCULOSKELETAL: No joint swelling or deformity. EXTREMITIES: No cyanosis, clubbing, or pedal edema. NEUROLOGICAL: Alert and oriented 2, mentation has improved significantly, f ollowing commands no deficit noted SKIN: No rashes. ASSESMENT & PLAN * Acute hypoxic respiratory failure secondary to acute exacerbation of chronic obstructive pulmonary disease * Right lower lobe pneumonia * Acute metabolic encephalopathy * Diarrhea stool C. diff negative * History of dementia * Diabetes mellitus * Hypertension * Chronic kidney disease * History of depression * History of urinary retention * urinary tract infection * In regard to respiratory failure continue patient on 3 L of oxygen. Was transferred to ICU for BiPAP support, pulmonary medicine following, continue patient on breathing treatment, continue antibiotic * Workup for pneumonia initiated urine Legionella negative, continue patient on Rocephin and azithromycin day 3 * For encephalopathy neurology consulted CT head negative for acute CVA, etiology likely secondary to hypercapnia improved with BiPAP * For diabetes continue Accu-Cheks continue correctional insulin * 4 units tract infection continue IV Rocephin urine cultures show gram-negative bacilli * Continue to monitor renal profile * On subcu heparin for DVT prophylaxis * CODE STATUS is full code Objective - Vital Signs Vital signs: Vital Signs Temp 97.7 F 07/15/22 08:00 Pulse 71 07/15/22 11:30 Resp 13 07/15/22 11:30 BP 163/98 07/15/22 11:30 Pulse Ox 93 L 07/15/22 11:30 FiO2 40 07/15/22 08:18 Intake & Output 07/14/22 07/15/22 07/15/22 18:59 06:59 18:59 Intake Total 1440 140 460 Output Total 1620 490 215 Balance -180 -350 245 Weight 98.2 kg Intake: IV 140 160 IV Fluid 140 160 Intake, IV Titration 250 Amount Azithromycin 500 mg In 250 Sodium Chloride 0.9% 250 ml @ 250 mls/hr IVPB DAILY [facility] Rx#:[id number] Oral 1440 50 Output: Urine 1620 490 215 Other: Voiding Method Indwelling Catheter Indwelling Catheter Indwelling Catheter - Labs CBC & Chem 7: 07/15/22 05:16 07/15/22 05:16 Labs: Abnormal Lab Results - Last 24 Hours (Table) 07/14/22 07/14/22 07/14/22 Range/Units 14:11 16:13 17:13 ABG pH 7.21 L (7.35-7.45) ABG pCO2 63 H (35-45) mmHg ABG Total CO2 27 H (19-24) mmol/L ABG O2 Saturation 97.9 H (94-97) % Chloride (98-107) mmol/L BUN (9-20) mg/dL Creatinine (0.66-1.25) mg/dL Glucose (74-99) mg/dL POC Glucose (mg/dL) 245 H 250 H (70-110) mg/dL 07/14/22 07/15/22 07/15/22 Range/Units 19:57 05:16 06:39 ABG pH (7.35-7.45) ABG pCO2 (35-45) mmHg ABG Total CO2 (19-24) mmol/L ABG O2 Saturation (94-97) % Chloride 109 H (98-107) mmol/L BUN 35 H (9-20) mg/dL Creatinine 2.01 H (0.66-1.25) mg/dL Glucose 196 H (74-99) mg/dL POC Glucose (mg/dL) 261 H 194 H (70-110) mg/dL 07/15/22 Range/Units 11:06 ABG pH (7.35-7.45) ABG pCO2 (35-45) mmHg ABG Total CO2 (19-24) mmol/L ABG O2 Saturation (94-97) % Chloride (98-107) mmol/L BUN (9-20) mg/dL Creatinine (0.66-1.25) mg/dL Glucose (74-99) mg/dL POC Glucose (mg/dL) 171 H (70-110) mg/dL Microbiology - Last 24 Hours (Table) 07/13/22 15:06 Urine Culture - Preliminary Urine,Voided Gram Neg Bacilli Assessment and Plan (1) Encephalopathy acute Current Visit: Yes Status: Acute Code(s): G93.40 - SNOMED Code(s): 8 4001843 (2) Pneumonia Current Visit: Yes Status: Acute Code(s): J18.9 - SNOMED Code(s): 066942428 (3) Hypoxia Current Visit: Yes Status: Acute Code(s): R09.02 - SNOMED Code(s): 776803765
--- NOTE | 2022-07-15 12:14 | P.PN ---
Subjective Progress Note Date: 07/15/22 I'm seeing the patient for the first time during this admission. Please refer to Dr. Howard's note for further details. Since the patient has altered mental status and that was assumed due to metabolic encephalopathy. According to the the no as well as the patient nurse the patient has underlying dementia and at at baseline he is alert oriented 1-2 a cord to the nurse. Per the nurse she feels he is at baseline. Objective - Vital Signs Vital signs: Vital Signs Temp 97.7 F 07/15/22 08:00 Pulse 71 07/15/22 11:30 Resp 13 07/15/22 11:30 BP 163/98 07/15/22 11:30 Pulse Ox 93 L 07/15/22 11:30 FiO2 40 07/15/22 08:18 Intake & Output 07/14/22 07/15/22 07/15/22 18:59 06:59 18:59 Intake Total 1440 140 460 Output Total 1620 490 215 Balance -180 -350 245 Weight 98.2 kg Intake: IV 140 160 IV Fluid 140 160 Intake, IV Titration 250 Amount Azithromycin 500 mg In 250 Sodium Chloride 0.9% 250 ml @ 250 mls/hr IVPB DAILY [facility] Rx#:[id number] Oral 1440 50 Output: Urine 1620 490 215 Other: Voiding Method Indwelling Catheter Indwelling Catheter Indwelling Catheter - Exam GENERAL: The patient is lying in bed and is not in acute distress. NEUROLOGICAL: Higher mental function: The patient is drowsy but is awakeable to voice. He is oriented to self and the patient stated that he is at [facility]. He could not tell me and the year or the month and he was a stating different years and months. He's able to name pen . Language is limited. Cranial nerves: The pupils are round, equal and reactive to light. Visual garcia are full to confrontation throughout. Extraocular movement is intact no nystagmus is noted. No facial weakness. No dysarthria from limited language. Motor: The strength is hard to assess individual muscle strength but was able to lift bilateral upper and lowers above gravity and no appreciable focal weakness. SOME OF THE WORK-UP DURING THIS HOSPITAL VISIT CONSISTED OF: * * CT had revealed significant generalized atrophy with no acute process. * Ammonia < 9, CRP normal. * B12: 463, folate, hemoglobin A1c: 6.0 - Labs CBC & Chem 7: 07/15/22 05:16 07/15/22 05:16 Labs: Abnormal Lab Results - Last 24 Hours (Table) 07/14/22 07/14/22 07/14/22 Range/Units 14:11 16:13 17:13 ABG pH 7.21 L (7.35-7.45) ABG pCO2 63 H (35-45) mmHg ABG Total CO2 27 H (19-24) mmol/L ABG O2 Saturation 97.9 H (94-97) % Chloride (98-107) mmol/L BUN (9-20) mg/dL Creatinine (0.66-1.25) mg/dL Glucose (74-99) mg/dL POC Glucose (mg/dL) 245 H 250 H (70-110) mg/dL 07/14/22 07/15/22 07/15/22 Range/Units 19:57 05:16 06:39 ABG pH (7.35-7.45) ABG pCO2 (35-45) mmHg ABG Total CO2 (19-24) mmol/L ABG O2 Saturation (94-97) % Chloride 109 H (98-107) mmol/L BUN 35 H (9-20) mg/dL Creatinine 2.01 H (0.66-1.25) mg/dL Glucose 196 H (74-99) mg/dL POC Glucose (mg/dL) 261 H 194 H (70-110) mg/dL 07/15/22 Range/Units 11:06 ABG pH (7.35-7.45) ABG pCO2 (35-45) mmHg ABG Total CO2 (19-24) mmol/L ABG O2 Saturation (94-97) % Chloride (98-107) mmol/L BUN (9-20) mg/dL Creatinine (0.66-1.25) mg/dL Glucose (74-99) mg/dL POC Glucose (mg/dL) 171 H (70-110) mg/dL Microbiology - Last 24 Hours (Table) 07/13/22 15:06 Urine Culture - Preliminary Urine,Voided Gram Neg Bacilli Assessment and Plan Assessment: * Altered mental status, likely due to metabolic encephalopathy. It appears patient has dementia and is oriented X1-2 which seems baseline currently. Reasons multifactorial for altered mental status as mentioned below: * COPD exacerbation * Right lower lobe pneumonia * History of medical debility and near bedridden since hospitalization for prostate surgery over a year ago. * Spinal stenosis * Acute renal insufficiency * Hypercapnia * Diabetes, not well controlled * Recent episode of hypoglycemia 07/13/2022 with blood glucose 48 * Hypertension * Dementia and reported baseline oriented X1-2. * Anemia * Legal blindness * History of prostate disorder Plan: * Medical management as per IM and pulmonary medicine * Pending folate level. The plan is discussed with the patient's nurse. Time with Patient: Less than 30
[2022-07-15] MEDS: amLODIPine 10 MG TAB PO SCH (14:02)
[2022-07-15 16:02] LABS: Glucose,Whole Blood 236 mg/dL (70-110)
[2022-07-15] MEDS: ISOSORBIDE MONONITRATE ER 60 MG TAB.ER.24H PO SCH (16:32)
[2022-07-15 20:39] LABS: Glucose,Whole Blood 290 mg/dL (70-110)
[2022-07-16] MEDS: methylPREDNISolone SOD SUCCI 40 MG/ML 1 ML VIAL IV SCH ×4 (00:04→23:33)
[2022-07-16] MEDS ORDERED: LABETALOL 5 MG/ML VIAL MDV IVP PRN ×2 (03:08→04:43)
[2022-07-16 06:12] LABS: HCT 35.9 % (39.0-53.0); HGB 11.8 gm/dL (13.0-17.5); MCV 91.1 fL (80.0-100.0); Mean Platelet Volume 8.4; Platelet Count 169 k/uL (150-450); RBC 3.94 m/uL (4.30-5.90); RDW 13.4 % (11.5-15.5); WBC 4.8 k/uL (3.8-10.6)
[2022-07-16 06:19] LABS: Calcium 8.3 mg/dL (8.4-10.2); Potassium 4.1 mmol/L (3.5-5.1)
[2022-07-16 06:39] LABS: Glucose,Whole Blood 234 mg/dL (70-110)
[2022-07-16] MEDS: INSULIN ASPART (NovoLOG) 100 UNIT/ML VIAL SQ SCH ×4 (07:01→20:38)
[2022-07-16] MEDS: FORMOTEROL FUMARATE 20 MCG/2 ML NEBU INHALATION SCH ×2 (07:50→20:45)
[2022-07-16] MEDS: BUDESONIDE 1 MG/2 ML NEBU INHALATION SCH ×2 (07:51→20:45)
[2022-07-16] MEDS: IPRATROPIUM-ALBUTEROL 3 ML NEB INHALATION SCH ×4 (07:51→20:45)
[2022-07-16] MEDS: SODIUM CHLORIDE 0.45% 1,000 ML IV SCH ×3 (07:54→23:35)
[2022-07-16] MEDS: PANTOPRAZOLE 40 MG/10 ML VIAL IVP SCH (08:15)
[2022-07-16] MEDS: ISOSORBIDE MONONITRATE ER 60 MG TAB.ER.24H PO SCH (08:16)
[2022-07-16] MEDS: AZITHROMYCIN 500 MG in SODIUM CHLORIDE 0.9% 250 ML IVPB SCH (08:16)
[2022-07-16] MEDS: amLODIPine 10 MG TAB PO SCH (08:16)
[2022-07-16] MEDS: METOPROLOL TARTRATE 25 MG TAB PO SCH ×2 (08:16→20:38)
[2022-07-16] MEDS: HEPARIN SODIUM,PORCINE/PF 5,000 UNIT/0.5 ML SYRINGE SQ SCH ×2 (08:16→20:38)
--- NOTE | 2022-07-16 10:56 | P.PN ---
Subjective Progress Note Date: 07/16/22 This is 72-year-old male patient who resides at [facility] with a history of dementia and medical debility up to approximately one year following an extended hospitalization after prostate surgery. He also has a history of severe pneumonia at the age of 14 requiring a 6 weeks stay at [facility] with multiple drainage procedures for abscess in the right lung according to his brothers who are at the bedside. They state he did not have tuberculosis. He was noted to be more short of breath at the [facility] and was transferred here for further evaluation. A computed tomography scan of the chest revealed volume loss involving the right hemithorax with dense pleural thickening and calcific ation associated with a fibrothorax. Computed tomography scan of the brain revealed marketed atrophy unchanged compared to previous in 2020. White count 3.9. Hemoglobin 12.2. Platelets 185. Sodium 139. Potassium 4.6. Bicarb 27. BUN 31. Creatinine 2.01. Glucose 105. Influenza screen negative. RSV screen negative. COVID-19 screen negative. He is seen today in consultation on the regular medical floor. Currently resting in bed. He is maintaining O2 saturations in the 90s on 3 L nasal cannula. Afebrile. Able to recognize his brothers. He's been initiated on DuoNeb inhalations, Pulmicort and performs inhalations, IV Solu-Medrol. Antibiotics in the form of ceftriaxone. Heparin for DVT prophylaxis. D5W half-normal saline at 100 ML's per hour. The patient is seen today 07/14/2022 in follow-up on the selective care unit. He is more obtunded today compared to yesterday. He is arousable. He is moving all fours. He is answering some yes no questions. Maintaining O2 saturations up to 99% on 3 L/m per nasal cannula. Chest x-ray reveals some fluid volume overload. There is chronic cardiopulmonary disease in the right with large pleural-based plaque, volume loss and pleural effusion. No left lung pleural effusion. No pneumothorax. Urine culture is pending. White count 3.2. Hemoglobin 13.0. Platelets 152. Sodium 142. Potassium 4.8. Bicarb 22. BUN 26. Creatinine 1.78. Glucose 245. Ammonia level less than 9. Continued on ceftriaxone and azithromycin. Continued on bronchodilators. Remains on IV Solu-Medrol. ABGs are pending. Neurology consult pending. The patient is seen today 07/15/2022 in follow-up in the intensive care unit. Last night he required BiPAP support and was more obtunded and subsequently transferred to the ICU. Chest x-ray continues to show similar right mid and right lower lobe infiltrates. Improved aeration in the left lower lobe. He had been seen and evaluated by neurology who HIS altered mental status was likely du e to metabolic encephalopathy and urine culture positive for gram-negative bacilli. White count 5.8. He will 13.1. Sodium 145. Potassium 4.9. Bicarb 25. BUN 35. Creatinine 2.01. Glucose 196. Hemoglobin A1c 6.0. The patient is awake and alert this morning. Answering yes and no questions. Currently on BiPAP 14/6 at 40% FiO2. He has normal saline at 20 ML's per hour. He is on antibiotics in the form of ceftriaxone and azithromycin. The patient is seen today 07/16/2022 follow-up in the intensive care unit. He is more awake and alert today. He is stable on 3 L nasal cannula. Not require BiPAP support. He has 0.45% normal saline at 100 ML's per hour. He is continued on Rocephin and azithromycin. He has E. coli in his urine. White count 4.8. Hemoglobin 11.8. Platelets 169. Sodium 140. Potassium 4.1. Bicarb 20. BUN 34. Creatinine 1.92. Glucose 237. He is continued on DuoNeb inhalations, Pulmicort and Perforomist inhalations, IV Solu-Medrol. Heparin for DVT prophylaxis. Objective - Vital Signs Vital signs: Vital Signs Temp 96.6 F L 07/16/22 08:00 Pulse 77 07/16/22 10:00 Resp 13 07/16/22 10:00 BP 148/74 07/16/22 10:00 Pulse Ox 99 07/16/22 10:00 FiO2 40 07/15/22 16:00 Intake & Output 07/15/22 07/16/22 07/16/22 18:59 06:59 18:59 Intake Total 1760 1200 550 Output Total 1175 1065 175 Balance 585 135 375 Weight 98.7 kg Intake: IV 860 1200 550 Azithromycin 500 mg In 250 Sodium Chloride 0.9% 250 ml @ 250 mls/hr IVPB DAILY [facility] Rx#:[id number] IV Fluid 160 Sodium Chloride 0.45% 1, 700 1200 300 000 ml @ 100 mls/hr IV . Q10H [facility] Rx#:[id number] Intake, IV Titration 250 Amount Azithromycin 500 mg In 250 Sodium Chloride 0.9% 250 ml @ 250 mls/hr IVPB DAILY [facility] Rx#:[id number] Oral 650 Output: Urine 1175 1065 175 Other: Voiding Method Indwelling Catheter Indwelling Catheter Indwelling Catheter - Exam GENERAL EXAM: Alert, slow to respond, 72-year-old male, on 3 L/m per nasal cannula, comfortable in no apparent distress. HEAD: Normocephalic. EYES: Normal reaction of pupils, equal size. NOSE: Clear with pink turbinates. THROAT: No erythema or exudates. NECK: No masses, no JVD. CHEST: No chest wall deformity. LUNGS: Equal air entry with few crackles in the right lower lobe. CVS: S1 and S2 normal with no audible murmur, regular rhythm. ABDOMEN: No hepatosplenomegaly, normal bowel sounds, no guarding or rigidity. SPINE: No scoliosis or deformity SKIN: No rashes CENTRAL NERVOUS SYSTEM: No focal deficits, tone is normal in all 4 extremities. EXTREMITIES: There is no peripheral edema. No clubbing, no cyanosis. Peripheral pulses are intact. - Labs CBC & Chem 7: 07/16/22 05:30 07/16/22 05:30 Labs: Abnormal Lab Results - Last 24 Hours (Table) 07/15/22 07/15/22 07/15/22 Range/Units 11:06 16:00 20:37 RBC (4.30-5.90) m/uL Hgb (13.0-17.5) gm/dL Hct (39.0-53.0) % BUN (9-20) mg/dL Creatinine (0.66-1.25) mg/dL Glucose (74-99) mg/dL POC Glucose (mg/dL) 171 H 236 H 290 H (70-110) mg/dL Calcium (8.4-10.2) mg/dL 07/16/22 07/16/22 07/16/22 Range/Units 05:30 05:30 06:38 RBC 3.94 L (4.30-5.90) m/uL Hgb 11.8 L (13.0-17.5) gm/dL Hct 35.9 L (39.0-53.0) % BUN 34 H (9-20) mg/dL Creatinine 1.92 H (0.66-1.25) mg/dL Glucose 237 H (74-99) mg/dL POC Glucose (mg/dL) 234 H (70-110) mg/dL Calcium 8.3 L (8.4-10.2) mg/dL Microbiology - Last 24 Hours (Table) 07/13/22 15:06 Urine Culture - Final Urine,Voided Escherichia coli Assessment and Plan Assessment: Acute hypoxic respiratory failure secondary to acute exacerbation of chronic obstructive pulmonary disease and possible early right lower lobe pneumonia. There is volume loss involving the right hemithorax with a dense pleural thickening and calcification could be associated with fibrothorax. Urinary tract infection secondary to E. coli. Pro-calcitonin 0.20 Culture pending remains on ceftriaxone and azithromycin Altered mental status secondary to above possible metabolic encephalopathy. Computed tomography scan of the brain revealed no acute intracranial process Diarrhea, C. difficile screen negative History of medical debility and near bedridden for the past year following a extended hospitalization after prostate surgery. Currently residing in [facility] History of dementia History of chronic tobacco dependence however quit approximately 3 years ago History of significant pneumonia with suspected abscess and multiple drainage procedures at [facility] back at the age of 14. He was hospitalized for 6 weeks at that time. Diabetes mellitus Hypertension Hyperlipidemia COVID-19 infection in May 2020 Chronic kidney disease Chronic anemia Legal blindness History of gout History of urinary retention History of depression Poor overall functional performance based on the above-mentioned multiple comorbidities Plan: The patient was seen and evaluated Medications and labs reviewed Currently stable and on 3 L nasal cannula More awake and alert today Continue 0.45% normal saline at 100 MLS per hour Continue ceftriaxone, discontinue azithromycin Continue bronchodilators, Solu-Medrol Transfer out of the ICU to the regular medical floor today We will continue to follow I have personally seen and examined the patient, performed the documentation and the assessment and plan as written. Number of minutes spent on the visit: 10.
[2022-07-16 12:15] LABS: Glucose,Whole Blood 232 mg/dL (70-110)
--- NOTE | 2022-07-16 13:11 | P.PN ---
Subjective Progress Note Date: 07/16/22 The patient is seen at bedside and feels doing well. Objective - Vital Signs Vital signs: Vital Signs Temp 96.6 F L 07/16/22 08:00 Pulse 84 07/16/22 11:49 Resp 13 07/16/22 10:00 BP 148/74 07/16/22 10:00 Pulse Ox 99 07/16/22 10:00 FiO2 40 07/15/22 16:00 Intake & Output 07/15/22 07/16/22 07/16/22 18:59 06:59 18:59 Intake Total 1760 1200 550 Output Total 1175 1065 175 Balance 585 135 375 Weight 98.7 kg Intake: IV 860 1200 550 Azithromycin 500 mg In 250 Sodium Chloride 0.9% 250 ml @ 250 mls/hr IVPB DAILY [facility] Rx#:[id number] IV Fluid 160 Sodium Chloride 0.45% 1, 700 1200 300 000 ml @ 100 mls/hr IV . Q10H [facility] Rx#:[id number] Intake, IV Titration 250 Amount Azithromycin 500 mg In 250 Sodium Chloride 0.9% 250 ml @ 250 mls/hr IVPB DAILY [facility] Rx#:[id number] Oral 650 Output: Urine 1175 1065 175 Other: Voiding Method Indwelling Catheter Indwelling Catheter Indwelling Catheter - Exam GENERAL: The patient is lying in bed and is not in acute distress. NEUROLOGICAL: Higher mental function: The patient is awake, alert, oriented to self and place but not time. Is following simple commands. Language is limited but no appreciable aphasia. Cranial nerves: The pupils is round over the right and reactive to light. While left has defect (seems old). Is tracking throughout the room and no appreciable nystagmus. No facial weakness. No dysarthria from limited language. Motor: The strength is hard to assess individual muscle strength but was able to lift bilateral upper and lowers above gravity and no appreciable focal weakness. SOME OF THE WORK-UP DURING THIS HOSPITAL VISIT CONSISTED OF: * CT had revealed significant generalized atrophy with no acute process. * Ammonia < 9, CRP normal. * B12: 463, folate, hemoglobin A1c: 6.0 * Folate is 13.1 - Labs CBC & Chem 7: 07/16/22 05:30 07/16/22 05:30 Labs: Abnormal Lab Results - Last 24 Hours (Table) 07/15/22 07/15/2207/16/23 Range/Units 16:00 20:37 05:30 RBC 3.94 L (4.30-5.90) m/uL Hgb 11.8 L (13.0-17.5) gm/dL Hct 35.9 L (39.0-53.0) % BUN (9-20) mg/dL Creatinine (0.66-1.25) mg/dL Glucose (74-99) mg/dL POC Glucose (mg/dL) 236 H 290 H (70-110) mg/dL Calcium (8.4-10.2) mg/dL 07/16/22 07/16/22 07/16/22 Range/Units 05:30 06:38 12:13 RBC (4.30-5.90) m/uL Hgb (13.0-17.5) gm/dL Hct (39.0-53.0) % BUN 34 H (9-20) mg/dL Creatinine 1.92 H (0.66-1.25) mg/dL Glucose 237 H (74-99) mg/dL POC Glucose (mg/dL) 234 H 232 H (70-110) mg/dL Calcium 8.3 L (8.4-10.2) mg/dL Microbiology - Last 24 Hours (Table) 07/13/22 15:06 Urine Culture - Final Urine,Voided Escherichia coli Assessment and Plan Assessment: * Altered mental status, likely due to metabolic encephalopathy. It appears patient has dementia and is oriented X1-2 which seems baseline currently. Reasons multifactorial for altered mental status as mentioned below: * COPD exacerbation * Right lower lobe pneumonia * History of medical debility and near bedridden since hospitalization for prostate surgery over a year ago. * Spinal stenosis * Acute renal insufficiency * Hypercapnia * Diabetes, not well controlled * Recent episode of hypoglycemia 07/13/2022 with blood glucose 48 * Hypertension * Dementia and reported baseline oriented X1-2. * Anemia * Legal blindness * History of prostate disorder Plan: * Medical management as per IM and pulmonary medicine There is no further neurological work-up. Please notify neurology team if any further concerns. Time with Patient: Less than 30
--- NOTE | 2022-07-16 13:32 | P.PN ---
Subjective Progress Note Date: 07/16/22 Principal diagnosis: Acute encephalopathy, shortness of breath respiratory failure INTERVAL HISTORY : 72-year-old male patient who resides at [facility] with a history of dementia and medical debility up to approximately one year following an extended hospitalization after prostate surgery. He also has a history of severe pneumonia at the age of 14 requiring a 6 weeks stay at [facility] with multiple drainage procedures for abscess in the right lung according to his brothers who are at the bedside. A computed tomography scan of the chest revealed volume loss involving the right hemithorax with dense pleural thickening and calcification associated with a fibrothorax. Computed tomography scan of the brain revealed marketed atrophy unchanged compared to previous in 2020. While on medical floor patient was treated for pneumonia. Patient was noted to have worsening encephalopathy and hypercapnia and was transferred to ICU for BiPAP SUBJECTIVE : Patient seen and evaluated bedside alert and oriented 2. Patient moved out of ICU on 07/16 continue to remain on oxygen supplementation REVIEW OF SYSTEMS: CONSTITUTIONAL: No fever, no malaise, no fatigue. HEENT: No recent visual problems or hearing problems. Denied any sore throat. CARDIOVASCULAR: No chest pain, orthopnea, PND, no palpitations, no syncope. PULMONARY: Shortness of breath and confusion has improved. GASTROINTESTINAL: No diarrhea, no nausea, no vomiting, no abdominal pain. NEUROLOGICAL: No headaches, no weakness, no numbness. HEMATOLOGICAL: Denies any bleeding or petechiae. GENITOURINARY: Denies any burning micturition, frequency, or urgency. MUSCULOSKELETAL/RHEUMATOLOGICAL: Denies any joint pain, swelling, or any muscle pain. ENDOCRINE: Denies any polyuria or polydipsia. PHYSICAL EXAMINATION: GENERAL: ill appearance, alert and oriented to person and situation nasal reese gerda in place HEENT: Pupils are round and equally reacting to light CARDIOVASCULAR: S1 and S2 present. No murmurs, rubs, or gallops. PULMONARY: Rhonchi audible, nasal cannula in place. ABDOMEN: Soft, nontender, nondistended, normoactive bowel sounds. No palpable organomegaly. MUSCULOSKELETAL: No joint swelling or deformity. EXTREMITIES: No cyanosis, clubbing, or pedal edema. NEUROLOGICAL: Alert and oriented 2, mentation has improved significantly, fo llowing commands no deficit noted SKIN: No rashes. ASSESMENT & PLAN * Acute hypoxic respiratory failure secondary to acute exacerbation of chronic obstructive pulmonary disease * Right lower lobe pneumonia * Acute metabolic encephalopathy * Diarrhea stool C. diff negative * History of dementia * Diabetes mellitus * Hypertension * Chronic kidney disease * History of depression * History of urinary retention * urinary tract infection E. coli * In regard to respiratory failure continue patient on 3 L of oxygen. Was transferred to ICU for BiPAP support, pulmonary medicine following, continue patient on breathing treatment, received Rocephin * Workup for pneumonia initiated urine Legionella negative, continue patient on Rocephin day 3, azithromycin 3 days completed * For encephalopathy neurology consulted CT head negative for acute CVA, etio logy likely secondary to hypercapnia improved with BiPAP * For diabetes continue Accu-Cheks continue correctional insulin * For Urinary tract infection continue IV Rocephin urine cultures show E. coli * Continue to monitor renal profile * On subcu heparin for DVT prophylaxis * CODE STATUS is full code Objective - Vital Signs Vital signs: Vital Signs Temp 96.6 F L 07/16/22 08:00 Pulse 84 07/16/22 11:49 Resp 13 07/16/22 10:00 BP 148/74 07/16/22 10:00 Pulse Ox 99 07/16/22 10:00 FiO2 40 07/15/22 16:00 Intake & Output 07/15/22 07/16/22 07/16/22 18:59 06:59 18:59 Intake Total 1760 1200 550 Output Total 1175 1065 175 Balance 585 135 375 Weight 98.7 kg Intake: IV 860 1200 550 Azithromycin 500 mg In 250 Sodium Chloride 0.9% 250 ml @ 250 mls/hr IVPB DAILY [facility] Rx#:[id number] IV Fluid 160 Sodium Chloride 0.45% 1, 700 1200 300 000 ml @ 100 mls/hr IV . Q10H [facility] Rx#:[id number] Intake, IV Titration 250 Amount Azithromycin 500 mg In 250 Sodium Chloride 0.9% 250 ml @ 250 mls/hr IVPB DAILY [facility] Rx#:[id number] Oral 650 Output: Urine 1175 1065 175 Other: Voiding Method Indwelling Catheter Indwelling Catheter Indwelling Catheter - Labs CBC & Chem 7: 07/16/22 05:30 07/16/22 05:30 Labs: Abnormal Lab Results - Last 24 Hours (Table) 07/15/22 07/15/22 07/16/22 Range/Units 16:00 20:37 05:30 RBC 3.94 L (4.30-5.90) m/uL Hgb 11.8 L (13.0-17.5) gm/dL Hct 35.9 L (39.0-53.0) % BUN (9-20) mg/dL Creatinine (0.66-1.25) mg/dL Glucose (74-99) mg/dL POC Glucose (mg/dL) 236 H 290 H (70-110) mg/dL Calcium (8.4-10.2) mg/dL 07/16/22 07/16/22 07/16/22 Range/Units 05:30 06:38 12:13 RBC (4.30-5.90) m/uL Hgb (13.0-17.5) gm/dL Hct (39.0-53.0) % BUN 34 H (9-20) mg/dL Creatinine 1.92 H (0.66-1.25) mg/dL Glucose 237 H (74-99) mg/dL POC Glucose (mg/dL) 234 H 232 H (70-110) mg/dL Calcium 8.3 L (8.4-10.2) mg/dL Microbiology - Last 24 Hours (Table) 07/13/22 15:06 Urine Culture - Final Urine,Voided Escherichia coli Assessment and Plan (1) Encephalopathy acute Current Visit: Yes Status: Acute Code(s): G93.40 - ENCEPHALOPATHY, UNSPECIFIED SNOMED Code(s): 04316219 (2) Pneumonia Current Visit: Yes Status: Acute Code(s): J18.9 - PNEUMONIA, UNSPECIFIED ORGANISM SNOMED Code(s): 985162879 (3) Hypoxia Current Visit: Yes Status: Acute Code(s): R09.02 - HYPOXEMIA SNOMED Code(s): 447016671
[2022-07-16 20:24] LABS: Glucose,Whole Blood 312 mg/dL (70-110)
[2022-07-17 05:56] LABS: Glucose,Whole Blood 214 mg/dL (70-110)
[2022-07-17] MEDS: INSULIN ASPART (NovoLOG) 100 UNIT/ML VIAL SQ SCH ×3 (06:20→17:13)
[2022-07-17 07:30] VITALS: TEMP 97.9
[2022-07-17 07:50] LABS: African American GFR (CKD) 44 (>60 ml/min/1.73 sqM); Anion Gap 4 mmol/L; Blood Urea Nitrogen 33 mg/dL (9-20); Calcium 8.2 mg/dL (8.4-10.2); Carbon Dioxide 29 mmol/L (22-30); Chloride 107 mmol/L (98-107); Glucose 187 mg/dL (74-99); HCT 38.5 % (39.0-53.0); HGB 12.3 gm/dL (13.0-17.5); MCH 29.8 pg (25.0-35.0); MCV 93.2 fL (80.0-100.0); Mean Platelet Volume 8.3; Non-African American GFR(CKD) 38 (>60 ml/min/1.73 sqM); Platelet Count 175 k/uL (150-450); Potassium 3.9 mmol/L (3.5-5.1); RBC 4.14 m/uL (4.30-5.90); RDW 13.4 % (11.5-15.5); Sodium 140 mmol/L (137-145); WBC 5.2 k/uL (3.8-10.6)
[2022-07-17] MEDS: ISOSORBIDE MONONITRATE ER 60 MG TAB.ER.24H PO SCH ×3 (08:05→12:51)
[2022-07-17] MEDS: methylPREDNISolone SOD SUCCI 40 MG/ML 1 ML VIAL IV SCH (08:05)
[2022-07-17] MEDS: METOPROLOL TARTRATE 25 MG TAB PO SCH ×3 (08:05→12:51)
[2022-07-17] MEDS: HEPARIN SODIUM,PORCINE/PF 5,000 UNIT/0.5 ML SYRINGE SQ SCH ×2 (08:05→10:13)
[2022-07-17] MEDS: amLODIPine 10 MG TAB PO SCH ×3 (08:05→12:51)
[2022-07-17] MEDS: PANTOPRAZOLE 40 MG/10 ML VIAL IVP SCH (08:06)
[2022-07-17] MEDS: BUDESONIDE 1 MG/2 ML NEBU INHALATION SCH (09:32)
[2022-07-17] MEDS: FORMOTEROL FUMARATE 20 MCG/2 ML NEBU INHALATION SCH (09:32)
[2022-07-17] MEDS: IPRATROPIUM-ALBUTEROL 3 ML NEB INHALATION SCH ×3 (09:32→16:23)
[2022-07-17 10:39] LABS: C Reactive Protein <0.5 mg/dL (<1.0)
[2022-07-17 11:24] LABS: Glucose,Whole Blood 158 mg/dL (70-110)
--- NOTE | 2022-07-17 11:27 | P.PN ---
Subjective Progress Note Date: 07/17/22 This is 72-year-old male patient who resides at [facility] with a history of dementia and medical debility up to approximately one year following an extended hospitalization after prostate surgery. He also has a history of severe pneumonia at the age of 14 requiring a 6 weeks stay at [facility] with multiple drainage procedures for abscess in the right lung according to his brothers who are at the bedside. They state he did not have tuberculosis. He was noted to be more short of breath at the [facility] and was transferred here for further evaluation. A computed tomography scan of the chest revealed volume loss involving the right hemithorax with dense pleural thickening and calcific ation associated with a fibrothorax. Computed tomography scan of the brain revealed marketed atrophy unchanged compared to previous in 2020. White count 3.9. Hemoglobin 12.2. Platelets 185. Sodium 139. Potassium 4.6. Bicarb 27. BUN 31. Creatinine 2.01. Glucose 105. Influenza screen negative. RSV screen negative. COVID-19 screen negative. He is seen today in consultation on the regular medical floor. Currently resting in bed. He is maintaining O2 saturations in the 90s on 3 L nasal cannula. Afebrile. Able to recognize his brothers. He's been initiated on DuoNeb inhalations, Pulmicort and performs inhalations, IV Solu-Medrol. Antibiotics in the form of ceftriaxone. Heparin for DVT prophylaxis. D5W half-normal saline at 100 ML's per hour. The patient is seen today 07/14/2022 in follow-up on the selective care unit. He is more obtunded today compared to yesterday. He is arousable. He is moving all fours. He is answering some yes no questions. Maintaining O2 saturations up to 99% on 3 L/m per nasal cannula. Chest x-ray reveals some fluid volume overload. There is chronic cardiopulmonary disease in the right with large pleural-based plaque, volume loss and pleural effusion. No left lung pleural effusion. No pneumothorax. Urine culture is pending. White count 3.2. Hemoglobin 13.0. Platelets 152. Sodium 142. Potassium 4.8. Bicarb 22. BUN 26. Creatinine 1.78. Glucose 245. Ammonia level less than 9. Continued on ceftriaxone and azithromycin. Continued on bronchodilators. Remains on IV Solu-Medrol. ABGs are pending. Neurology consult pending. The patient is seen today 07/15/2022 in follow-up in the intensive care unit. Last night he required BiPAP support and was more obtunded and subsequently transferred to the ICU. Chest x-ray continues to show similar right mid and right lower lobe infiltrates. Improved aeration in the left lower lobe. He had been seen and evaluated by neurology who HIS altered mental status was likely du e to metabolic encephalopathy and urine culture positive for gram-negative bacilli. White count 5.8. He will 13.1. Sodium 145. Potassium 4.9. Bicarb 25. BUN 35. Creatinine 2.01. Glucose 196. Hemoglobin A1c 6.0. The patient is awake and alert this morning. Answering yes and no questions. Currently on BiPAP 14/6 at 40% FiO2. He has normal saline at 20 ML's per hour. He is on antibiotics in the form of ceftriaxone and azithromycin. The patient is seen today 07/16/2022 follow-up in the intensive care unit. He is more awake and alert today. He is stable on 3 L nasal cannula. Not require BiPAP support. He has 0.45% normal saline at 100 ML's per hour. He is continued on Rocephin and azithromycin. He has E. coli in his urine. White count 4.8. Hemoglobin 11.8. Platelets 169. Sodium 140. Potassium 4.1. Bicarb 20. BUN 34. Creatinine 1.92. Glucose 237. He is continued on DuoNeb inhalations, Pulmicort and Perforomist inhalations, IV Solu-Medrol. Heparin for DVT prophylaxis. The patient is seen today 07/17/2022 in follow-up on the regular medical floor. He is awake and alert. Resting comfortably in bed. Somewhat confused to time and place. Currently maintaining good O2 saturation in the mid 90s on room air. He's afebrile. Urine culture was positive for E. coli. White count 5.2. Hemoglobin 12.3. Platelets 175. Sodium 140. Potassium 3.9. Bicarb 29. BUN 33. Creatinine 1.74. Glucose 187. Continued on DuoNeb inhalations, Perforomist and Pulmicort inhalations, IV Solu-Medrol. Heparin for DVT prophylaxis. Objective - Vital Signs Vital signs: Vital Signs Temp 97.9 F 07/17/22 07:28 Pulse 79 07/17/22 07:28 Resp 16 07/17/22 07:28 BP 178/98 07/17/22 07:28 Pulse Ox 95 07/17/22 07:28 FiO2 40 07/15/22 16:00 Intake & Output 07/16/22 07/17/22 07/17/22 18:59 06:59 18:59 Intake Total 550 Output Total 900 1000 Balance -350 -1000 Weight 96 kg Intake: IV 550 Azithromycin 500 mg In 250 Sodium Chloride 0.9% 250 ml @ 250 mls/hr IVPB DAILY PASCUAL Rx#:[id number] Sodium Chloride 0.45% 1, 300 000 ml @ 100 mls/hr IV . Q10H PASCUAL Rx#:[id number] Output: Urine 900 1000 Other: Voiding Method Indwelling Catheter Indwelling Catheter - Exam GENERAL EXAM: Alert, confused to time and place, 72-year-old male, on room air, comfortable in no apparent distress. HEAD: Normocephalic. EYES: Normal reaction of pupils, equal size. NOSE: Clear with pink turbinates. THROAT: No erythema or exudates. NECK: No masses, no JVD. CHEST: No chest wall deformity. LUNGS: Equal air entry with few crackles in the right lower lobe. CVS: S1 and S2 normal with no audible murmur, regular rhythm. ABDOMEN: No hepatosplenomegaly, normal bowel sounds, no guarding or rigidity. SPINE: No scoliosis or deformity SKIN: No rashes CENTRAL NERVOUS SYSTEM: No focal deficits, tone is normal in all 4 extremities. EXTREMITIES: There is no peripheral edema. No clubbing, no cyanosis. Peripheral pulses are intact. - Labs CBC & Chem 7: 07/17/22 06:34 07/17/22 06:34 Labs: Abnormal Lab Results - Last 24 Hours (Table) 07/16/22 07/16/22 07/17/22 Range/Units 12:13 20:22 05:54 RBC (4.30-5.90) m/uL Hgb (13.0-17.5) gm/dL Hct (39.0-53.0) % BUN (9-20) mg/dL Creatinine (0.66-1.25) mg/dL Glucose (74-99) mg/dL POC Glucose (mg/dL) 232 H 312 H 214 H (70-110) mg/dL Calcium (8.4-10.2) mg/dL 07/17/22 07/17/22 Range/Units 06:34 06:34 RBC 4.14 L (4.30-5.90) m/uL Hgb 12.3 L (13.0-17.5) gm/dL Hct 38.5 L (39.0-53.0) % BUN 33 H (9-20) mg/dL Creatinine 1.74 H (0.66-1.25) mg/dL Glucose 187 H (74-99) mg/dL POC Glucose (mg/dL) (70-110) mg/dL Calcium 8.2 L (8.4-10.2) mg/dL Assessment and Plan Assessment: Acute hypoxic respiratory failure secondary to acute exacerbation of chronic obstructive pulmonary disease and possible early right lower lobe pneumonia. There is volume loss involving the right hemithorax with a dense pleural thicken ing and calcification could be associated with fibrothorax. Urinary tract infection secondary to E. coli. Pro-calcitonin 0.20. Completed ceftriaxone and azithromycin Altered mental status secondary to above possible metabolic encephalopathy. Computed tomography scan of the brain revealed no acute intracranial process Diarrhea, C. difficile screen negative History of medical debility and near bedridden for the past year following a extended hospitalization after prostate surgery. Currently residing in [facility] History of dementia History of chronic tobacco dependence however quit approximately 3 years ago History of significant pneumonia with suspected abscess and multiple drainage procedures at [facility] back at the age of 14. He was hospitalized for 6 weeks at that time. Diabetes mellitus Hypertension Hyperlipidemia COVID-19 infection in May 2020 Chronic kidney disease Chronic anemia Legal blindness History of gout History of urinary retention History of depression Poor overall functional performance based on the above-mentioned multiple comorbidities Plan: The patient was seen and evaluated Medications reviewed Currently stable and on room air Continue bronchodilators Discontinue Solu-Medrol, complete a prednisone taper Cleared for discharge from the pulmonary standpoint I have personally seen and examined the patient, performed the documentation and the assessment and plan as written. Number of minutes spent on the visit: 10.
[2022-07-17] MEDS: SODIUM CHLORIDE 0.45% 1,000 ML IV SCH (12:49)
[2022-07-17 14:06] VITALS: BP 140/80; PULSE 77; RESP 18
--- NOTE | 2022-07-17 14:34 | P.DS ---
Providers Date of admission: 07/13/22 00:48 Expected date of discharge: 07/17/22 Attending physician: Bear Reyna Consults: 07/13/22 00:48 Consult Physician Routine Consulting Provider: Colt Ruiz Consult Reason/Comments: hypoxic respiratory failure Do you want consulting provider notified?: Yes 07/14/22 09:45 Consult Physician Urgent Consulting Provider: Ronna Howard Consult Reason/Comments: AMS Do you want consulting provider notified?: Yes Primary care physician: Catalina Anu - Discharge Diagnosis(es) (1) Encephalopathy acute Current Visit: Yes Status: Acute (2) Pneumonia Current Visit: Yes Status: Acute (3) Hypoxia Current Visit: Yes Status: Acute Hospital Course: Chief complaint Acute encephalopathy, shortness of breath respiratory failure Hospital course 72-year-old male patient who resides at [facility] with a history of dementia and medical debility up to approximately one year following an extended hospitalization after prostate surgery. He also has a history of severe pneumonia at the age of 14 requiring a 6 weeks stay at [facility] with multiple drainage procedures for abscess in the right lung according to his brothers who are at the bedside. A computed tomography scan of the chest revealed volume loss involving the right hemithorax with dense pleural thickening and calcification associated with a fibrothorax. Computed tomography scan of the brain revealed marketed atrophy unchanged compared to previous in 2020. While on medical floor patient was treated for pneumonia. Patient was noted to have worsening encephalopathy and hypercapnia and was transferred to ICU for BiPAP Patient was in ICU for 48 hours required BiPAP. For pneumonia patient completed treatment for antibiotic. We'll unit tract infection patient was transitioned to oral antibiotics upon discharge mentation improved significantly and patient was transferred out of ICU on 07/16. Patient is alert and appropriate answering questions and was cleared for discharge by pulmonary medicine PHYSICAL EXAMINATION: GENERAL: Chronic ill appearance, alert and oriented to person and situation , weaned off oxygen HEENT: Pupils are round and equally reacting to light CARDIOVASCULAR: S1 and S2 present. No murmurs, rubs, or gallops. PULMONARY: Rhonchi audible, nasal cannula in place. ABDOMEN: Soft, nontender, nondistended, normoactive bowel sounds. No palpable organomegaly. MUSCULOSKELETAL: No joint swelling or deformity. EXTREMITIES: No cyanosis, clubbing, or pedal edema. NEUROLOGICAL: Alert and oriented 2, mentation has improved significantly, following commands no deficit noted SKIN: No rashes. Assessment and plan * Acute hypoxic respiratory failure secondary to acute exacerbation of chronic obstructive pulmonary disease * Right lower lobe pneumonia * Acute metabolic encephalopathy * Diarrhea stool C. diff negative * History of dementia * Diabetes mellitus * Hypertension * Chronic kidney disease * History of depression * History of urinary retention * urinary tract infection E. coli * In regard to respiratory failure patient required 3 L of oxygen, was on BiPAP during hospital stay however weaned down to room air Was transferred to ICU for BiPAP support, pulmonary medicine following, continue patient on breathing treatment, received Rocephin * Workup for pneumonia initiated urine Legionella negative, continue patient on Rocephin day 4>> transitioned to oral antibiotic azithromycin 3 days completed * For encephalopathy neurology consulted CT head negative for acute CVA, etiology likely secondary to hypercapnia improved with BiPAP * For diabetes continue home regimen * For Urinary tract infection continue IV Rocephin urine cultures show E. coli transitioned to oral antibiotics upon discharge Patient Condition at Discharge: Fair Plan - Discharge Summary Discharge Rx Participant: No New Discharge Prescriptions: New predniSONE See Taper PO DAILY 6 Days #12 tab cefUROXime axetiL [Ceftin] 500 mg PO BID 3 Days #6 tab Continue Acetaminophen Tab [Tylenol] 650 mg PO Q6H PRN PRN Reason: Fever And/ Or Pain Metoprolol Tartrate [Lopressor] 25 mg PO BID Loperamide HCl [Loperamide] 2 mg PO Q6H PRN PRN Reason: Loose Stool Insulin Glargine,Hum.rec.anlog [Lantus Solostar Pen] 20 units SQ DAILY Insulin Glargine,Hum.rec.anlog [Lantus Solostar Pen] 26 units SQ HS Atorvastatin Calcium [Lipitor] 40 mg PO HS allopurinoL 100 mg PO DAILY Cholecalciferol [Vitamin D3 (25 Mcg = 1000 Iu)] 50 mcg PO DAILY guaiFENesin SYRUP 100MG/5ML [Robitussin] 100 mg PO Q4H PRN PRN Reason: Cough Sertraline [Zoloft] 50 mg PO DAILY Sennosides-Docusate Sodium [Senokot-S] 1 tab PO DAILY Mag Hydrox/Aluminum Hyd/Simeth [Mylanta Maximum Strength Liq] 10 ml PO Q6H PRN PRN Reason: Nausea Magnesium Hydroxide [Milk of Magnesia Concentrate] 7,200 mg PO Q48H PRN PRN Reason: Constipation lisinopriL [Zestril] 10 mg PO DAILY Isosorbide Mononitrate ER [Imdur] 60 mg PO DAILY amLODIPine [Norvasc] 10 mg PO DAILY Bumetanide [BUMEX] 1 mg PO DAILY Discharge Medication List Acetaminophen Tab [Tylenol] 650 mg PO Q6H PRN 07/13/22 [History] Atorvastatin Calcium [Lipitor] 40 mg PO HS 07/13/22 [History] Bumetanide [BUMEX] 1 mg PO DAILY 07/13/22 [History] Cholecalciferol [Vitamin D3 (25 Mcg = 1000 Iu)] 50 mcg PO DAILY 07/13/22 [History] Insulin Glargine,Hum.rec.anlog [Lantus Solostar Pen] 20 units SQ DAILY 07/13/22 [History] Insulin Glargine,Hum.rec.anlog [Lantus Solostar Pen] 26 units SQ HS 07/13/22 [History] Isosorbide Mononitrate ER [Imdur] 60 mg PO DAILY 07/13/22 [History] Loperamide HCl [Loperamide] 2 mg PO Q6H PRN 07/13/22 [History] Mag Hydrox/Aluminum Hyd/Simeth [Mylanta Maximum Strength Liq] 10 ml PO Q6H PRN 07/13/22 [History] Magnesium Hydroxide [Milk of Magnesia Concentrate] 7,200 mg PO Q48H PRN 07/13/22 [History] Metoprolol Tartrate [Lopressor] 25 mg PO BID 07/13/22 [History] Sennosides-Docusate Sodium [Senokot-S] 1 tab PO DAILY 07/13/22 [History] Sertraline [Zoloft] 50 mg PO DAILY 07/13/22 [History] allopurinoL 100 mg PO DAILY 07/13/22 [History] amLODIPine [Norvasc] 10 mg PO DAILY 07/13/22 [History] guaiFENesin SYRUP 100MG/5ML [Robitussin] 100 mg PO Q4H PRN 07/13/22 [History] lisinopriL [Zestril] 10 mg PO DAILY 04/08/23 [History] cefUROXime axetiL [Ceftin] 500 mg PO BID 3 Days #6 tab 07/17/22 [Rx] predniSONE See Taper PO DAILY 6 Days #12 tab 07/17/22 [Rx] Follow up Appointment(s)/Referral(s): Catalina Brennan MD [Primary Care Provider] - 1-2 days Discharge Disposition: TRANSFER TO SNF/ECF
[2022-07-17 16:41] LABS: Glucose,Whole Blood 346 mg/dL (70-110)
[2022-07-18] MEDS ORDERED: predniSONE 10 MG TAB PO SCH (09:00)
--- NOTE | 2022-07-19 07:49 | CDI ---
Documentation Clarification Form Date: 07/19/22 From: Lea Christianson Admit Date: 07/13/2022 12:48:00 AM Patient Name: Wilfred Salmeron Visit Number: [id number] Discharge Date: 07/17/2022 7:39:00 PM ATTENTION: The Clinical Documentation Specialists (CDI) and [facility] Coding Staff appreciate your assistance in clarifying documentation. Please respond to the clarification below the line at the bottom and electronically sign. The CDI & [facility] Coding staff will review the response and follow-up if needed. Please note: Queries are made part of the Legal Health Record. If you have any questions, please contact the author of this message via ITS. Dr. Chaparro Winter, Unspecified CKD is documented in Dr. Ruiz's consult, PNs & discharge summary. Additional clarification regarding the stage of CKD is requested. History/Risk Factors: Pneumonia, metabolic encephalopathy, UTI, acute hypoxic respiratory failure, COPD, dementia, T2DM w hypoglycemia & CKD Patients Historical BUN/CR/GFR Clinical Indicators: Hypertension heart and chronic kidney disease. Current BUN: 31, 26, 35, 34, 33 Current CR: 2.01, 1.78, 2.01, 1.92, 1.74 Current GFR: 32, 37, 32, 34, 38 Treatment: IV fluids, IV Lasix, Bumex PO, Please clarify the stage of the CKD, if known: [ ] CKD Stage 1 (GFR > 90) [ ] CKD Stage 2 (GFR 60-89) [ ] CKD Stage 3 (GFR 30-59) [ ] CKD Stage 3a (GFR 45-59) [ y ] CKD Stage 3b (GFR 30-44) [ ] CKD Stage 4 (GFR 15-29) [ ] CKD Stage 5 (GFR <15) [ ] ESRD [ ] Acute kidney failure [ ] Other, please specify [ ] Unable to determine MTDD
== END 2022-07-17 19:39 | DRG 193 ==
LOC: EC 23:29 → 3SCARD 07-13 00:48 → 2SICU 07-14 16:09 → 4SSUR 07-16 11:12
PROVIDERS: ADMIT Hospitalist; ATTEND Hospitalist
PROC: 5A09357 Assistance with Respiratory Ventilation, Less than 24 Consecutive Hours, Continuous Positive Airway Pressure (ICD-10-PCS; principal; 2022-07-14)
DX: J18.9 Pneumonia, unspecified organism (principal); G93.41 Metabolic encephalopathy; J96.01 Acute respiratory failure with hypoxia; I13.0 Hypertensive heart and chronic kidney disease with heart failure and stage 1 through stage 4 chronic kidney disease, or unspecified chronic kidney disease; J44.1 Chronic obstructive pulmonary disease with (acute) exacerbation; J44.0 Chronic obstructive pulmonary disease with (acute) lower respiratory infection; N39.0 Urinary tract infection, site not specified; F03.93 Unspecified dementia, unspecified severity, with mood disturbance; E11.649 Type 2 diabetes mellitus with hypoglycemia without coma; E27.8 Other specified disorders of adrenal gland; E11.22 Type 2 diabetes mellitus with diabetic chronic kidney disease; B96.20 Unspecified Escherichia coli [E. coli] as the cause of diseases classified elsewhere; I50.9 Heart failure, unspecified; N18.32 Chronic kidney disease, stage 3b; Z79.4 Long term (current) use of insulin; Z20.822 Contact with and (suspected) exposure to COVID-19; H35.039 Hypertensive retinopathy, unspecified eye; J94.1 Fibrothorax; F32.A Depression, unspecified; N13.9 Obstructive and reflux uropathy, unspecified; N42.9 Disorder of prostate, unspecified; D64.9 Anemia, unspecified; E78.5 Hyperlipidemia, unspecified; H54.8 Legal blindness, as defined in USA; M10.00 Idiopathic gout, unspecified site; M48.00 Spinal stenosis, site unspecified; E66.9 Obesity, unspecified; Z68.29 Body mass index [BMI] 29.0-29.9, adult; Z79.899 Other long term (current) drug therapy; Z86.16 Personal history of COVID-19; Z87.891 Personal history of nicotine dependence; Z99.3 Dependence on wheelchair; Z74.01 Bed confinement status
CPT/HCPCS: 36415; 36600; 70450; 71045; 71250; 80048; 82140; 82607; 82746; 82803; 82805; 83036; 83605; 83735; 84145; 85025; 85027; 86140; 87077; 87086; 87186; 87324; 87449; 87636; 93005; 94640; 94660; 94760; 99285